=== PATIENT | female | born 1950 | race Caucasian/White ===

== ENCOUNTER → 2017-02-25 | Outpatient (CLI) | payer BC ==
[~2017-02-25] MED LIST: AMLO-110 PO; ASPI81TA28 PO; ATEN50TA8 PO; CHN/1 PO; CRS/10 PO; CRS20 PO; NAPR-1169 PO; NTRSLP4 SL; PLV75 PO; PRED1SUS3 OPR
--- NOTE | 2017-02-25 13:41 | DIAGNOSTIC IMAGING REPORT ---
TWO VIEW CHEST CLINICAL HISTORY: Tobacco use history. COPD. FINDINGS: PA and lateral chest radiographs are compared to study dated 08/14/2006. The cardiomediastinal silhouette is unremarkable. There is atherosclerotic calcification of the thoracic aorta. Chronic interstitial thickening is similar to previous. No airspace consolidation or pleural effusion is identified. There is no pneumothorax. The skeletal structures are osteopenic. Degenerative change is noted in the thoracic spine. IMPRESSION: 1. No active disease in the chest. 2. There is no concerning pulmonary lesion seen by chest x-ray. Note that chest x-ray is insensitive in screening for lung cancer, and if there is clinical concern for pulmonary neoplasm then a chest CT should be considered. Electronically signed by: Yakov Frias M.D. 02/25/2017 1:40 PM Dictated Date/Time: 02/25/2017 1:39 PM
== END | disposition home or self-care (01) ==
LOC: C.RAD 13:19
PROVIDERS: ATTEND Internal Medicine Cardiovascular Disease
DX: Z72.0 Tobacco use (principal)

== ENCOUNTER 2017-02-27 04:43 | Inpatient (IN) | payer BC ==
[2017-02-27] VITALS (14 sets, daily range): BP systolic 97–148; BP diastolic 68–86; PULSE 55–69; TEMP 36.4–36.9; O2SAT 92–99; Ht 160 cm; Wt 67.6 kg
[~2017-02-27] VITALS: Ht 160 cm; Wt 67.6 kg
[~2017-02-27 04:43] MED LIST changes: -AMLO-110 PO; -ASPI81TA28 PO; -CHN/1 PO; -CRS/10 PO; -CRS20 PO; -NTRSLP4 SL; -PLV75 PO
[2017-02-27 05:02] LABS: BASO % 0.3 %; BASO ABS # 0.02 K/uL (0-0.2); COMPLETE YES; EOS % 3.9 %; HEMATOCRIT 40.8 % (37-47); IG% 0.3 %; LYMPH % 30.5 %; LYMPH ABS # 2.19 K/uL (1.2-3.4); MEAN CELL VOLUME 91.7 fL (80-100); MEAN CORPUSCULAR HEMOGLOBIN 31.7 pg (25-34); MEAN CORPUSCULAR HGB CONC 34.6 g/dl (32-36); MEAN PLATELET VOLUME 9.5 fL (7.4-10.4); MONO % 8.6 %; NEUT % 56.4 %; PLATELET COUNT 236 K/uL (130-400); RED BLOOD COUNT 4.45 M/uL (4.2-5.4); WHITE BLOOD COUNT 7.19 K/uL (4.8-10.8)
[2017-02-27] MEDS ORDERED: AMLO-110 PO (05:09)
[2017-02-27] MEDS ORDERED: ASPI81TA28 PO (05:09)
[2017-02-27] MEDS ORDERED: CRS/10 PO (05:09)
[2017-02-27] MEDS: NITROGLYCERIN 0.4 MG SL PER TAB CHARGE SL PRN ×3 (05:10→05:20)
[2017-02-27 05:20] LABS: BUN/CREATININE RATIO 15.5 (10-20); CREATININE 0.81 mg/dl (0.60-1.20)
[2017-02-27 05:25] LABS: ISTAT CREATININE 0.6 mg/dl (0.6-1.3); ISTAT HEMOGLOBIN 13.9 g/dl (12.0-16.0); ISTAT IONIZED CALCIUM 1.17 mmol/l (1.12-1.32)
[2017-02-27] MEDS ORDERED: OPTIRAY 320 IV PRN (05:30)
[2017-02-27 05:41] LABS: CKMB/CK RATIO 1.6 (0-3.0)
[2017-02-27] MEDS ORDERED: NITROGLYCERIN OINT 2% 1GM PACKET EXT SCH (06:00)
[2017-02-27] MEDS ORDERED: NITROGLYCERIN OINT 2% 1GM PACKET ONE (06:06)
[2017-02-27 06:20] LABS: INR 0.9 (0.9-1.1); PROTHROMBIN TIME (PATIENT) 9.9 SECONDS (9.0-12.0)
[2017-02-27] MEDS ORDERED: ACETAMINOPHEN 325 MG TAB PO PRN ×2 (06:30→15:15)
[2017-02-27] MEDS ORDERED: ALUMINUM/MAGNESIUM/SIMETH (MAALOX MAX) 30 ML UDC PO PRN (06:30)
[2017-02-27] MEDS ORDERED: MoRPHine SULFATE 2 MG/ML CARP IV PRN ×2 (06:30→15:15)
[2017-02-27] MEDS ORDERED: NITROGLYCERIN 0.4 MG SL PER TAB CHARGE SL PRN (06:30)
[2017-02-27] MEDS ORDERED: ONDANSETRON INJ 2 MG/ML 2 ML VIAL IV PRN ×2 (06:30→15:15)
[2017-02-27] MEDS ORDERED: POLYETHYLENE (MIRALAX) 17 GM PACK PO PRN (06:30)
[2017-02-27] MEDS ORDERED: ZOLPIDEM TARTRATE 5 MG TAB PO PRN (06:30)
[2017-02-27] MEDS ORDERED: MAGNESIUM HYDROXIDE SUSP 30 ML UDC PO PRN (06:30)
[2017-02-27] MEDS ORDERED: HEPARIN 25000 UNIT/500 ML D5W ONE (06:33)
[2017-02-27] MEDS ORDERED: HEPARIN SOD 5000 UNIT/0.5 ML CARP ONE (06:33)
--- NOTE | 2017-02-27 06:44 | DIAGNOSTIC IMAGING REPORT ---
CT ANGIOGRAM OF THE CHEST CLINICAL HISTORY: Chest pain and elevated d-dimer COMPARISON STUDY: No previous studies for comparison. TECHNIQUE: Following the IV administration of 60 mL of Optiray-320, CT angiogram of the thorax was performed from the thoracic inlet to the lung bases utilizing the pulmonary embolus protocol. Images are reviewed in the axial, sagittal, and coronal planes. IV contrast was administered without complication. MIP imaging was performed. CT DOSE: 235.20 mGy.cm FINDINGS: No pathologically enlarged axillary mediastinal or hilar lymph nodes were visualized. There was no evidence of thoracic aortic dilatation. There were no pulmonary artery filling defects to indicate acute pulmonary embolism. No pleural effusions are visualized. There is no focal pulmonary consolidation. There are mild dependent atelectatic changes. There is a calcified granuloma within the right upper lobe. There is borderline esophageal wall thickening. There is a small hiatal hernia IMPRESSION: 1. No CT evidence of acute pulmonary embolism. 2. Small hiatal hernia. Borderline esophageal wall thickening. 3. No evidence of focal pulmonary consolidation Electronically signed by: Kameron Torres M.D. 02/27/2017 6:43 AM Dictated Date/Time: 02/27/2017 6:40 AM
--- NOTE | 2017-02-27 06:53 | History and Physical ---
History & Physical Date & Time of Service: Feb 27, 2017 at 06:37 Chief Complaint: Chest Pain Primary Care Physician: Ravin Bangura M.D. History of Present Illness Source: patient 66 y/o F Hx HTN, HPL. LBBB. Pt developed central CP with radiation to her R arm and R posterior shoulder. She describes SOB, denies N/V, diaphoresis. Initial EKG revealed lat T inversions which were not present on a previous. Initial trop was +. She obtained relief from NTG however the pain in her shoulder/upper back persisted. A CTA was obtained in the ER which was negative for dissection. Past Medical/Surgical History Medical history 1) HTN 2) HPL 3) L Nephrectomy - nonfunctioning kidney was discovered incidentally during workup for secondary HTN 4) LBBB - She had a cath 20 yrs prior due to this which was negative Surgical 1) L nephrectomy 2) Cholecystectomy 3) R wrist 4) L knee 5) Cataractcs Family History Hypertension Father due to cerebral aneurysm Mother due to gastric CA Social History Smokes 1 pack QD Does not drink Smoking Status: Current Every Day Smoker Multi-Drug Resistant Organisms History of MDRO: No Allergies Coded Allergies: No Known Allergies (Verified , 02/27/17) Home Medications Scheduled Amlodipine (Norvasc), 5 MG PO DAILY Aspirin (Aspirin Ec), 81 MG PO DAILY Atenolol (Tenormin), 50 MG PO QAM Rosuvastatin Calcium (Crestor), 10 MG PO DAILY Review of Systems Constitutional: No fever, No chills, No sweats Eyes: No worsening of vision ENT: No hearing loss, No unusual epistaxis, No nasal symptoms Respiratory: + dyspnea at rest, No cough, No sputum, No wheezing Cardiovascular: + chest pain, No orthopnea, No PND Abdomen: No pain, No nausea, No vomiting Musculoskeletal: + problem reported (Pain in post L shoulder with CP) Genitourinary - Female: No dysuria, No urinary frequency, No urinary urgency Neurologic: No memory loss Psychiatric: No depression symptoms Endocrine: No fatigue Hematologic / Lymphatic: No abnormal bleeding/bruising Integumentary: No rash Allergic / Immunologic: No environmental allergies Physical Exam Vital Signs Date Time Temp Pulse Resp B/P (MAP) Pulse Ox O2 Delivery O2 Flow Rate FiO2 02/27/17 05:41 71 18 152/80 98 Room Air 02/27/17 05:21 73 18 152/72 93 Room Air 02/27/17 05:16 67 18 145/77 94 Room Air 02/27/17 05:11 65 18 171/93 96 Room Air 02/27/17 05:03 97 Room Air 02/27/17 04:54 70 02/27/17 04:47 96 Room Air 02/27/17 04:47 37.0 73 18 179/96 96 Room Air General Appearance: WD/WN, no apparent distress Head: normocephalic Eyes: normal inspection ENT: normal ENT inspection, hearing grossly normal, TMs normal, pharynx normal Neck: supple, no JVD Respiratory/Chest: chest non-tender, lungs clear, normal breath sounds, no respiratory distress, no accessory muscle use Cardiovascular: regular rate, rhythm, no edema Abdomen/GI: normal bowel sounds, non tender, soft Back: normal inspection Extremities/Musculoskelatal: normal inspection, no calf tenderness, normal capillary refill 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, no motor/sensory deficits, alert, normal mood/affect, normal reflexes, oriented x 3 Skin: normal color, warm/dry, no rash Diagnostics Laboratory Results Results Past 24 Hours Test 02/27/17 04:53 02/27/17 05:07 02/27/17 05:10 Range/Units White Blood Count 7.19 4.8-10.8 K/uL Red Blood Count 4.45 4.2-5.4 M/uL Hemoglobin 14.1 12.0-16.0 g/dL Hematocrit 40.8 37-47 % Mean Corpuscular Volume 91.7 80-100 fL Mean Corpuscular Hemoglobin 31.7 25-34 pg Mean Corpuscular Hemoglobin Concent 34.6 32-36 g/dl Platelet Count 236 130-400 K/uL Mean Platelet Volume 9.5 7.4-10.4 fL Neutrophils (%) (Auto) 56.4 % Lymphocytes (%) (Auto) 30.5 % Monocytes (%) (Auto) 8.6 % Eosinophils (%) (Auto) 3.9 % Basophils (%) (Auto) 0.3 % Neutrophils # (Auto) 4.06 1.4-6.5 K/uL Lymphocytes # (Auto) 2.19 1.2-3.4 K/uL Monocytes # (Auto) 0.62 0.11-0.59 K/uL Eosinophils # (Auto) 0.28 0-0.5 K/uL Basophils # (Auto) 0.02 0-0.2 K/uL RDW Standard Deviation 45.0 36.4-46.3 fL RDW Coefficient of Variation 13.4 11.5-14.5 % Immature Granulocyte % (Auto) 0.3 % Immature Granulocyte # (Auto) 0.02 0.00-0.02 K/uL Prothrombin Time 9.9 9.0-12.0 SECONDS Prothromb Time International Ratio 0.9 0.9-1.1 Activated Partial Thromboplast Time 25.9 21.0-31.0 SECONDS Partial Thromboplastin Ratio 1.0 Sodium Level 142 136-145 mmol/L Potassium Level 4.0 3.5-5.1 mmol/L Chloride Level 112 98-107 mmol/L Carbon Dioxide Level 22 21-32 mmol/L Anion Gap 8.0 20.0 16-25 mmol/L Blood Urea Nitrogen 13 7-18 mg/dl Creatinine 0.81 0.60-1.20 mg/dl Est Creatinine Clear Calc Drug Dose 65.9 ml/min Estimated GFR () 89.0 Estimated GFR (Non- 76.8 BUN/Creatinine Ratio 15.5 10-20 Random Glucose 129 70-99 mg/dl Calcium Level 9.0 8.5-10.1 mg/dl Total Creatine Kinase 56 26-192 U/L Creatine Kinase MB 0.9 0.5-3.6 ng/ml Creatine Kinase MB Ratio 1.6 0-3.0 Troponin I 0.111 0-0.045 ng/ml Bedside D-Dimer > 450 0-450 ng/mlFEU Bedside Hemoglobin 13.9 12.0-16.0 g/dl Bedside Hematocrit 41 37-47 % Bedside Sodium 141 135-144 mEq/L Bedside Potassium 3.9 3.3-5.0 mEq/L Bedside Chloride 105 101-112 mEq/L Bedside Total CO2 21 24-31 mEq/l Bedside Blood Urea Nitrogen 12 7-18 mg/dl Bedside Creatinine 0.6 0.6-1.3 mg/dl Bedside Glucose (other) 130 70-99 mg/dl Bedside Ionized Calcium (Danisha) 1.17 1.12-1.32 mmol/l EKG LBBB, lat depression not present on an EKG 10/11 Impression Assessment and Plan 66 y/o F Hx HTN, HPL. LBBB. Pt developed central CP with radiation to her R arm and R posterior shoulder. She describes SOB, denies N/V, diaphoresis. Initial EKG revealed lat T inversions which were not present on a previous. Initial trop was +. She obtained relief from NTG however the pain in her shoulder/upper back persisted. A CTA was obtained in the ER which was negative for dissection. 1) NSTEMI - pt willl be evaluated by the cardiology service emergently. She has been placed on full-dose Heparin, NTG, ASA and we have doubled her Statin dose. 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 2) HTN - cont Bblocker - may want to change to Metoprolol or Coreg, Cont Norvasc , NTG 3) HPL -Crestor increased to 20mg daily 4) L nephrectomy - There is some concern with dye load as she had a CTA and will likely proceed to a cath - we will aggressively hydrate - BMP should be repeated later in day. Full Code - fulll dose Heparin Total time for this admit including review of labs, meds, EKG, records - discussion with pt and ER attending - 40 min Level of Care Telemetry Resuscitation Status FULL RESUSCITATION VTE Prophylaxis VTE Risk Assessment Done? Y/N: Yes Risk Level: Moderate Given or contraindicated: Other Anticoagulation
--- NOTE | 2017-02-27 07:04 | EMERGENCY ROOM VISIT NOTE ---
History Report prepared by [place]: John White Under the Supervision of: Dr. Richard Jean D.O. First contact with patient: 04:50 Chief Complaint: CHEST PAIN Stated Complaint: CHEST PAIN History of Present Illness The patient is a 66 year old female who presents to the Emergency Room with complaints of persistent chest pain that began at 0300 this morning, two hours prior to arrival. The patient states that she woke up form sleep this morning with a pain in her left arm and chest. She describes the pain in her chest as a "tightness" and notes that it was severe. Her pain was improved by Nitro and Aspirin that was administered via EMS prior to arrival. She does have a history of high blood pressure, but no other cardiac disease. The patient notes that she does have an arterial blockage in her left arm, and that she has had a left bundle branch block for several hear. She denies headache, change in vision, fevers, nausea, vomiting, diarrhea, pain with urination, and melena. 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 A total of 10 systems reviewed and were otherwise negative. Past Medical & Surgical Medical Problems: (1) Hypertension (2) NSTEMI (non-ST elevated myocardial infarction) Hypertension Family History Hypertension Social History Smoking Status: Current Every Day Smoker Drug Use: none Marital Status: Housing Status: lives with significant other Occupation Status: retired Current/Historical Medications Scheduled Amlodipine (Norvasc), 5 MG PO DAILY Aspirin (Aspirin Ec), 81 MG PO DAILY Atenolol (Tenormin), 50 MG PO QAM Rosuvastatin Calcium (Crestor), 10 MG PO DAILY Allergies Coded Allergies: No Known Allergies (Verified , 02/27/17) Physical Exam Vital Signs Date Time Temp Pulse Resp B/P (MAP) Pulse Ox O2 Delivery O2 Flow Rate FiO2 02/27/17 06:50 66 02/27/17 06:36 62 18 161/69 96 Room Air 02/27/17 05:41 71 18 152/80 98 Room Air 02/27/17 05:21 73 18 152/72 93 Room Air 02/27/17 05:16 67 18 145/77 94 Room Air 02/27/17 05:11 65 18 171/93 96 Room Air 02/27/17 05:03 97 Room Air 02/27/17 04:54 70 02/27/17 04:47 96 Room Air 02/27/17 04:47 37.0 73 18 179/96 96 Room Air Physical Exam GENERAL: alert, sitting up in bed, disheveled, non-toxic EYE EXAM: normal conjunctiva, PERRL and EOM's grossly intact OROPHARYNX: no exudate, no erythema, lips, buccal mucosa, and tongue normal and mucous membranes are moist NECK: supple, no nuchal rigidity, no adenopathy, non-tender LUNGS: Clear to auscultation. Normal chest wall mechanics HEART: no murmurs, S1 normal and S2 normal ABDOMEN: abdomen soft, non-tender, normo-active bowel sounds, no masses, no rebound or guarding. BACK: Back is symmetrical on inspection and there is no deformity, no midline tenderness, no CVA tenderness. SKIN: no rashes and no bruising UPPER EXTREMITIES: upper extremities are grossly normal. Left pulse diminished from the right. LOWER EXTREMITIES: No pitting edema. NEURO EXAM: Normal sensorium, cranial nerves II-XII grossly intact, normal speech, no gross weakness of arms, no gross weakness of legs. Medical Decision & Procedures ER Provider Diagnostic Interpretation: Radiology results as stated below per my review: PORTABLE UPRIGHT 1 VIEW X-RAY: No focal infiltrate, no pneumothorax. CTA CHEST: No evidence of pulmonary embolus. Calcific and noncalcific atheromatous disease of the thoracic aorta. No dissection or aneurysm. NO parenchymal abnormality still suggest inflammatory or infectious process. Calcified pulmonary nodule within the right upper lobe and right lower lobe. The heart and pericardium are unremarkable. No significant adenopathy. No pleural effusion or pneumothorax. The visualized upper abdomen demonstrates small hiatal hernia. No acute osseous abnormality. Radiologist: Richard Perry MD Laboratory Results 02/27/17 04:53 Red Blood Count 4.45, Mean Corpuscular Volume 91.7, Mean Corpuscular Hemoglobin 31.7, Mean Corpuscular Hemoglobin Concent 34.6, Mean Platelet Volume 9.5, Neutrophils (%) (Auto) 56.4, Lymphocytes (%) (Auto) 30.5, Monocytes (%) (Auto) 8.6, Eosinophils (%) (Auto) 3.9, Basophils (%) (Auto) 0.3, Neutrophils # (Auto) 4.06, Lymphocytes # (Auto) 2.19, Monocytes # (Auto) 0.62, Eosinophils # (Auto) 0.28, Basophils # (Auto) 0.02 02/27/17 04:53 Test 02/27/17 04:53 02/27/17 05:07 02/27/17 05:10 White Blood Count 7.19 K/uL (4.8-10.8) Red Blood Count 4.45 M/uL (4.2-5.4) Hemoglobin 14.1 g/dL (12.0-16.0) Hematocrit 40.8 % (37-47) Mean Corpuscular Volume 91.7 fL (80-100) Mean Corpuscular Hemoglobin 31.7 pg (25-34) Mean Corpuscular Hemoglobin Concent 34.6 g/dl (32-36) Platelet Count 236 K/uL (130-400) Mean Platelet Volume 9.5 fL (7.4-10.4) Neutrophils (%) (Auto) 56.4 % Lymphocytes (%) (Auto) 30.5 % Monocytes (%) (Auto) 8.6 % Eosinophils (%) (Auto) 3.9 % Basophils (%) (Auto) 0.3 % Neutrophils # (Auto) 4.06 K/uL (1.4-6.5) Lymphocytes # (Auto) 2.19 K/uL (1.2-3.4) Monocytes # (Auto) 0.62 K/uL (0.11-0.59) Eosinophils # (Auto) 0.28 K/uL (0-0.5) Basophils # (Auto) 0.02 K/uL (0-0.2) RDW Standard Deviation 45.0 fL (36.4-46.3) RDW Coefficient of Variation 13.4 % (11.5-14.5) Immature Granulocyte % (Auto) 0.3 % Immature Granulocyte # (Auto) 0.02 K/uL (0.00-0.02) Prothrombin Time 9.9 SECONDS (9.0-12.0) Prothromb Time International Ratio 0.9 (0.9-1.1) Activated Partial Thromboplast Time 25.9 SECONDS (21.0-31.0) Partial Thromboplastin Ratio 1.0 Est Creatinine Clear Calc Drug Dose 65.9 ml/min Estimated GFR () 89.0 Estimated GFR (Non- 76.8 BUN/Creatinine Ratio 15.5 (10-20) Calcium Level 9.0 mg/dl (8.5-10.1) Total Creatine Kinase 56 U/L (26-192) Creatine Kinase MB 0.9 ng/ml (0.5-3.6) Creatine Kinase MB Ratio 1.6 (0-3.0) Troponin I 0.111 ng/ml (0-0.045) Bedside D-Dimer > 450 ng/mlFEU (0-450) Bedside Hemoglobin 13.9 g/dl (12.0-16.0) Bedside Hematocrit 41 % (37-47) Bedside Sodium 141 mEq/L (135-144) Bedside Potassium 3.9 mEq/L (3.3-5.0) Bedside Chloride 105 mEq/L (101-112) Bedside Total CO2 21 mEq/l (24-31) Anion Gap 20.0 mmol/L (16-25) Bedside Blood Urea Nitrogen 12 mg/dl (7-18) Bedside Creatinine 0.6 mg/dl (0.6-1.3) Bedside Glucose (other) 130 mg/dl (70-99) Bedside Ionized Calcium (Danisha) 1.17 mmol/l (1.12-1.32) Laboratory results per my review. Medications Administered Medications (Trade) Dose Ordered Sig/Cami Route Start Time Stop Time Status Last Admin Dose Admin Nitroglycerin (Nitrostat Tab) 0.4 mg Q5M PRN SL 02/27/17 05:00 03/29/17 04:59 02/27/17 05:20 0.4 MG Nitroglycerin (Nitroglycerin 2% Oint) 2 inch Q6H EXT 02/27/17 06:00 03/29/17 05:59 02/27/17 06:12 2 INCH Heparin Sodium/ Dextrose 1 ea NOW STAT N/A 02/27/17 06:05 02/27/17 06:08 DC 02/27/17 06:05 1 EA Heparin Sodium/ Dextrose (Heparin 25,000 Unit/500ml D5W) 25,000 unit STK-MED ONCE .ROUTE 02/27/17 06:33 02/27/17 06:34 DC 02/27/17 06:42 25,000 UNIT Heparin Sodium (Porcine) (Heparin Sq 5000 Unit/0.5ml) 5,000 unit STK-MED ONCE .ROUTE 02/27/17 06:33 02/27/17 06:34 DC 02/27/17 06:39 5,000 UNIT ECG Indication: chest pain Rate (beats per minute): 72 Rhythm: normal sinus Findings: LBBB, ST depression (Inferior, Lateral), other (Normal intervals) Comparison ECG Date: 10/05/15 Change: no significant change Change: REPEAT ECG: Shows worsening depressions in V4 and V5. ED Course ED COURSE: Vital signs were reviewed and showed Hypertensive Vitals The patients medical record was reviewed The above diagnostic studies were performed and reviewed. ED treatments and interventions as stated above. 0452: The patient was evaluated in room A9. A complete history and physical examination was performed. 0500: Ordered Nitroglycerin 0.4 mg SL. 0600: Ordered Nitroglycerin 2 in EXT. 0606: I discussed the case with Dr. L[facility] He will evaluate the patient for further treatment. 0626: I discussed the case with Dr. Terry Kasper [facility]. He will come to evaluate the patient in the department. []: Upon reevaluation, the patient is [].I discussed my findings with the [ patient] and [] understands and agrees with the treatment plan. Based on the patients age, coexisting illnesses, exam and lab findings the decision to treat as an [inpatient][outpatient] was made. The patient remained stable while under my care. [The patient appeared well at the time of discharge.] [The patient will be evaluated for further management.] Medical Decision Blood pressure screening: Patient was found to have an elevated blood pressure and was referred to their primary doctor for recheck and further treatment. Medication Reconciliation: I attest that I have personally reviewed the patient' s current medication list. Differential diagnoses includes but is not limited to acute coronary syndrome, myocardial infarction, pericarditis, pulmonary embolus, aortic dissection, pneumonia, pneumothorax, musculoskeletal, shingles, esophageal. Patient is a 66-year-old female with a past medical history of hypertension, hyperlipidemia and a smoker that presents the ER for left arm pain and chest pain which woke her up from sleeping at 3 AM. Patient presented via ALS. Pain significant improved with nitroglycerin but not resolved. She is given additional nitroglycerin in the ER with resolution of her chest pain. She was given aspirin via EMS. She still had some mild pain in her right trapezius which she notes started with her chest pain. Repeat EKG showed worsening ST depressions in V4/V5. Patient does admit to a left bundle branch block which is known. Last cath was 20 years ago. Patient was placed on heparin drip and bolus. She had no bleeding risk factors. No blood in her stool, no blood in her urine, no recent surgeries, recent trauma, coughing up blood or previous brain bleeds. Discussed case with cardiology and they will evaluate her at bedside. Patient was admitted to internal medicine with NSTEMI. Consults Time Called: 06 Consulting Physician: Dr. Lorie GONZALEZ Hospitalist Returned Call: 06 I discussed the case with Dr. Lorie GONZALEZ Hospitalist. He will evaluate the patient for further treatment. Additional Consults: Time Called: 06 Consulted Physician: Dr. Terry GONZALEZ Hospitalist Returned Call: 06 Additional Comments: I discussed the case with Dr. Terry GONZALEZ Cardiology. He will come to evaluate the patient in the department. Impression Primary Impression: ACS (acute coronary syndrome) Additional Impressions: Elevated troponin Acute electrocardiogram changes Critical Care I have personally spent 35 minutes of critical care time in the direct management of this patient. This includes bedside care, interpretation of diagnostic studies, and testing, discussion with consultants, patient, and family members, and other required patient management activities. This 35 minutes is in excess of all separately billable procedures. Scribe Attestation The scribe's documentation has been prepared under my direction and personally reviewed by me in its entirety. I confirm that the note above accurately reflects all work, treatment, procedures, and medical decision making performed by me. Departure Information Dispostion Being Evaluated By Hospitalist Referrals Ravin Bangura M.D. (PCP) Patient Instructions My [facility] Problem Qualifiers
--- NOTE | 2017-02-27 07:08 | DIAGNOSTIC IMAGING REPORT ---
CHEST ONE VIEW PORTABLE CLINICAL HISTORY: Chest Pain pain COMPARISON STUDY: 02/25/2017 FINDINGS: The bones soft tissues and hemidiaphragms are normal. The cardiomediastinal silhouette is normal. The lungs are clear. The pulmonary vasculature is normal. IMPRESSION: Negative chest. Electronically signed by: Franco Renee M.D. 02/27/2017 7:06 AM Dictated Date/Time: 02/27/2017 7:06 AM
[2017-02-27] MEDS ORDERED: HEPARIN 25,000 UNIT/500ML D5W 500 ML IV PRN (08:45)
[2017-02-27] MEDS: AMLODIPINE BESYLATE 5 MG TAB PO SCH (09:00)
[2017-02-27] MEDS: ROSUVASTATIN CALCIUM 20 MG TAB PO SCH (09:20)
[2017-02-27] MEDS: NITROGLYCERIN OINT 2% 1GM PACKET EXT SCH ×3 (09:20→20:01)
[2017-02-27] MEDS: ASPIRIN 81 MG ECTAB PO SCH (09:20)
--- NOTE | 2017-02-27 09:21 | Cardiology Consultation ---
Cardiology Consultation Date of Consultation: Feb 27, 2017. Requesting Physician: Lorie Attending Physician: soraya Pt evaluation today including: conversation w/ patient, chart review, lab review, review of studies, conversation w/ test consultant History of Present Illness woke up with scapular discomfort and left arm heaviness with diaphoresis. Received SL NTG by EMS and in ED x3 with eventual relief. On heparin drip and NTG paste and CP free this am. No Chest pressure yesterday. Progressive SOB and THOMASON. Left calf claudication. no left radial pulse. Tearful and upset. 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 Claudication left calf Family History Hypertension Social History Smoking Status: Current Every Day Smoker History of Alcohol Use: No Review of Systems Constitutional: No see HPI, No fever, No chills, No sweats, No weight loss, No weakness, No fatigue, No problem reported Respiratory: + dyspnea on exertion Cardiac: + see HPI Abdomen: No see HPI, No pain, No nausea, No vomiting, No diarrhea, No constipation, No GI bleeding, No problem reported Neurologic: No see HPI, No memory loss, No paralysis, No weakness, No numbness/ tingling, No vertigo, No balance problems, No problem reported Endo: No see HPI, No fatigue, No excessive thirst, No excessive urination, No problem reported Skin: No see HPI, No rash, No itch, No new/changing skin lesions, No color change, No bleeding, No problem reported All Other Systems: Reviewed and Negative Allergies Coded Allergies: No Known Allergies (Verified , 02/27/17) Medications Current Inpatient Medications Medications (Trade) Dose Ordered Sig/Cami Route Start Time Stop Time Status Last Admin Dose Admin Ioversol (Optiray 320) 100 ml UD PRN IV 02/27/17 05:30 03/03/17 05:29 Amlodipine Besylate (Norvasc Tab) 5 mg DAILY PO 02/27/17 09:00 03/29/17 08:59 Aspirin (Ecotrin Tab) 81 mg DAILY PO 02/27/17 09:00 03/29/17 08:59 Atenolol (Tenormin Tab) 50 mg QAM PO 02/27/17 09:00 03/29/17 08:59 Rosuvastatin Calcium (Crestor Tab) 20 mg DAILY PO 02/27/17 09:00 03/29/17 08:59 Acetaminophen (Tylenol Tab) 650 mg Q4H PRN PO 02/27/17 06:30 03/29/17 06:29 Al Hydrox/Mg Hydrox/Simethicone (Maalox Max Susp) 15 ml Q4H PRN PO 02/27/17 06:30 03/29/17 06:29 Magnesium Hydroxide (Milk Of Magnesia Susp) 30 ml Q12H PRN PO 02/27/17 06:30 03/29/17 06:29 Zolpidem Tartrate (Ambien Tab) 5 mg HSZ PRN PO 02/27/17 06:30 03/29/17 06:29 Ondansetron HCl (Zofran Inj) 4 mg Q6H PRN IV 02/27/17 06:30 03/29/17 06:29 Nitroglycerin (Nitrostat Tab) 0.4 mg UD PRN SL 02/27/17 06:30 03/29/17 06:29 Nitroglycerin (Nitroglycerin 2% Oint) 1 inch Q6H EXT 02/27/17 10:00 03/29/17 09:59 Morphine Sulfate (MoRPHine SULFATE INJ) 2 mg Q30M PRN IV 02/27/17 06:30 03/13/17 06:29 Polyethylene (Miralax Powder Packet) 17 gm DAILY PRN PO 02/27/17 06:30 03/29/17 06:29 Heparin Sodium/ Dextrose 500 ml @ 21 mls/hr [id number] PRN IV 02/27/17 08:45 03/29/17 08:44 Physical Exam Vital Signs Past 12 Hours Date Time Temp Pulse Resp B/P (MAP) Pulse Ox O2 Delivery O2 Flow Rate FiO2 02/27/17 07:30 36.7 62 16 147/75 95 Room Air 02/27/17 06:50 66 02/27/17 06:36 62 18 161/69 96 Room Air 02/27/17 05:41 71 18 152/80 98 Room Air 02/27/17 05:21 73 18 152/72 93 Room Air 02/27/17 05:16 67 18 145/77 94 Room Air 02/27/17 05:11 65 18 171/93 96 Room Air 02/27/17 05:03 97 Room Air 02/27/17 04:54 70 02/27/17 04:47 96 Room Air 02/27/17 04:47 37.0 73 18 179/96 96 Room Air Constitutional: General Apperance: heathly-appearing Level of Distress: NAD Psychiatric: Mental Status: anxious Lungs: Respiratory effort: no dyspnea Auscultation: decreased breath sounds Cardiovascular: Heart Auscultation: RRR, no murmurs, no rubs, no gallops, II/ MARLON (early peaking) Abdomen: Bowel Sounds: normal Inspection & Palpation: soft, non-distended, no tenderness, guarding & rebound Extremities: no edema, pertinent finding (non palpable left radial pulse) Data Laboratory Results: Last 24 Hours Test 02/27/17 04:53 02/27/17 05:07 02/27/17 05:10 02/27/17 09:00 White Blood Count 7.19 K/uL Red Blood Count 4.45 M/uL Hemoglobin 14.1 g/dL Hematocrit 40.8 % Mean Corpuscular Volume 91.7 fL Mean Corpuscular Hemoglobin 31.7 pg Mean Corpuscular Hemoglobin Concent 34.6 g/dl Platelet Count 236 K/uL Mean Platelet Volume 9.5 fL Neutrophils (%) (Auto) 56.4 % Lymphocytes (%) (Auto) 30.5 % Monocytes (%) (Auto) 8.6 % Eosinophils (%) (Auto) 3.9 % Basophils (%) (Auto) 0.3 % Neutrophils # (Auto) 4.06 K/uL Lymphocytes # (Auto) 2.19 K/uL Monocytes # (Auto) 0.62 K/uL Eosinophils # (Auto) 0.28 K/uL Basophils # (Auto) 0.02 K/uL RDW Standard Deviation 45.0 fL RDW Coefficient of Variation 13.4 % Immature Granulocyte % (Auto) 0.3 % Immature Granulocyte # (Auto) 0.02 K/uL Prothrombin Time 9.9 SECONDS Prothromb Time International Ratio 0.9 Activated Partial Thromboplast Time 25.9 SECONDS Partial Thromboplastin Ratio 1.0 Sodium Level 142 mmol/L Potassium Level 4.0 mmol/L Chloride Level 112 mmol/L Carbon Dioxide Level 22 mmol/L Anion Gap 8.0 mmol/L 20.0 mmol/L Blood Urea Nitrogen 13 mg/dl Creatinine 0.81 mg/dl Est Creatinine Clear Calc Drug Dose 65.9 ml/min Estimated GFR () 89.0 Estimated GFR (Non- 76.8 BUN/Creatinine Ratio 15.5 Random Glucose 129 mg/dl Calcium Level 9.0 mg/dl Total Creatine Kinase 56 U/L Creatine Kinase MB 0.9 ng/ml Creatine Kinase MB Ratio 1.6 Troponin I 0.111 ng/ml Bedside D-Dimer > 450 ng/mlFEU Bedside Hemoglobin 13.9 g/dl Bedside Hematocrit 41 % Bedside Sodium 141 mEq/L Bedside Potassium 3.9 mEq/L Bedside Chloride 105 mEq/L Bedside Total CO2 21 mEq/l Bedside Blood Urea Nitrogen 12 mg/dl Bedside Creatinine 0.6 mg/dl Bedside Glucose (other) 130 mg/dl Bedside Ionized Calcium (Danisha) 1.17 mmol/l Imaging: CT chest reviewed EKG: NSR Borderline first degree AVB LBBB Echo from [facility] [place] normal LV function LVEF 75%, Mild LVH. Normal RV size and function , Mild , normal PA pressures Assessment & Plan (1) NSTEMI (non-ST elevated myocardial infarction) Status: Acute (2) Hypertension Status: Chronic Assessment & Plan: 1) NSTEMI 2) Chronic LBBB 3) Hx left nephrectomy secondary to STEPHANIA 4) Tob Abuse 5) LVEF 75% 6) Mild 7) No left radial pulse with left carotid bruit 8) HTN Plan cardiac cath today--risks and benefits discussed in detail IVF to hydrate after CT chest last night and single kidney with second contrast load BB, Norvasc, crestor, ASA, heparin drip, NTG paste May have LM or Triple vessel Dz needs outpt assessment of left carotid LEADS done on saturday as outpt but results not yet available Smoking cessation and may need nictone patch or Chantix d/w Hospitalists 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
[2017-02-27] MEDS ORDERED: SODIUM CHLORIDE 0.9% 1000ML 1,000 ML IV SCH (09:22)
--- NOTE | 2017-02-27 09:41 | Hospitalist Progress Note ---
Hospitalist Progress Note Date of Service Feb 27, 2017. (Christine Salas PA-C) Subjective Pt evaluation today including: conversation w/ patient, physical exam, chart review, lab review, review of studies The patient was seen and examined this morning. Pt reports doing well today, she feels much better now than earlier today. Pt reports initially her pain occured in the left arm at 2:45 AM which woke her from sleep, she woke her son up (who lives with her) and he called EMS. Pt got 2 sprays of nitroglycerin in the field, then 2 more doses one arrived in the ER and then her pain finally resolved. She denies lightheadedness or dizzinesss, chest pain or shortness of breath. Pt never had abdominal complaints or sob. Additional Comments: ROS: 6 point ROS reviewed and negative. (Christine Salas PA-C) Objective Vital Signs Date Time Temp Pulse Resp B/P (MAP) Pulse Ox O2 Delivery O2 Flow Rate FiO2 02/27/17 07:30 36.7 62 16 147/75 95 Room Air 02/27/17 06:50 66 02/27/17 06:36 62 18 161/69 96 Room Air 02/27/17 05:41 71 18 152/80 98 Room Air 02/27/17 05:21 73 18 152/72 93 Room Air 02/27/17 05:16 67 18 145/77 94 Room Air 02/27/17 05:11 65 18 171/93 96 Room Air 02/27/17 05:03 97 Room Air 02/27/17 04:54 70 02/27/17 04:47 96 Room Air 02/27/17 04:47 37.0 73 18 179/96 96 Room Air (hCristine Salas PA-C) Physical Exam General Appearance: WD/WN, no apparent distress, + pertinent finding (appears older than stated age) Eyes: PERRL, EOMI ENT: hearing grossly normal, pharynx normal Neck: supple, no JVD Respiratory/Chest: chest non-tender, no accessory muscle use, + pertinent finding (diminished breath sounds throughout, no adventitious breath sounds) Cardiovascular: regular rate, rhythm, + systolic murmur (grade II/ ), + pertinent finding (Left radial pulse is very weak, Right radial pulse 2+. Posterior tibial pulses are equal bilaterally, 1+. ) Abdomen: normal bowel sounds, non tender, soft Extremities: no pedal edema, + pertinent finding (Left calf tenderness with palpation. + slight swelling at the proximal calf muscle toward knee. No edema in ankles. ) Neurologic/Psychiatric: alert, oriented x 3 Skin: normal color, warm/dry (Christine Salas PA-C) Laboratory Results Last 24 Hours Test 02/27/17 04:53 02/27/17 05:07 02/27/17 05:10 02/27/17 09:00 White Blood Count 7.19 K/uL Red Blood Count 4.45 M/uL Hemoglobin 14.1 g/dL Hematocrit 40.8 % Mean Corpuscular Volume 91.7 fL Mean Corpuscular Hemoglobin 31.7 pg Mean Corpuscular Hemoglobin Concent 34.6 g/dl Platelet Count 236 K/uL Mean Platelet Volume 9.5 fL Neutrophils (%) (Auto) 56.4 % Lymphocytes (%) (Auto) 30.5 % Monocytes (%) (Auto) 8.6 % Eosinophils (%) (Auto) 3.9 % Basophils (%) (Auto) 0.3 % Neutrophils # (Auto) 4.06 K/uL Lymphocytes # (Auto) 2.19 K/uL Monocytes # (Auto) 0.62 K/uL Eosinophils # (Auto) 0.28 K/uL Basophils # (Auto) 0.02 K/uL RDW Standard Deviation 45.0 fL RDW Coefficient of Variation 13.4 % Immature Granulocyte % (Auto) 0.3 % Immature Granulocyte # (Auto) 0.02 K/uL Prothrombin Time 9.9 SECONDS Prothromb Time International Ratio 0.9 Activated Partial Thromboplast Time 25.9 SECONDS Partial Thromboplastin Ratio 1.0 Sodium Level 142 mmol/L Potassium Level 4.0 mmol/L Chloride Level 112 mmol/L Carbon Dioxide Level 22 mmol/L Anion Gap 8.0 mmol/L 20.0 mmol/L Blood Urea Nitrogen 13 mg/dl Creatinine 0.81 mg/dl Est Creatinine Clear Calc Drug Dose 65.9 ml/min Estimated GFR () 89.0 Estimated GFR (Non- 76.8 BUN/Creatinine Ratio 15.5 Random Glucose 129 mg/dl Calcium Level 9.0 mg/dl Total Creatine Kinase 56 U/L Creatine Kinase MB 0.9 ng/ml Creatine Kinase MB Ratio 1.6 Troponin I 0.111 ng/ml Bedside D-Dimer > 450 ng/mlFEU Bedside Hemoglobin 13.9 g/dl Bedside Hematocrit 41 % Bedside Sodium 141 mEq/L Bedside Potassium 3.9 mEq/L Bedside Chloride 105 mEq/L Bedside Total CO2 21 mEq/l Bedside Blood Urea Nitrogen 12 mg/dl Bedside Creatinine 0.6 mg/dl Bedside Glucose (other) 130 mg/dl Bedside Ionized Calcium (Danisha) 1.17 mmol/l (Christine Salas PA-C) Assessment and Plan 66 yo F with PMHx of HTN, HLD, LBBB, Left nephrectomy s/p renal artery stenosis , chronic tobacco use, celiac disease NSTEMI - Cont in Tele - Initial troponin 0.111 --> 1.080, await 1 more set - Planned cardiac cath today with possibility of needing cagb d/t probably left subclavian stenosis with worsening arm pain. Discussed with Dr. Altamirano and he reports this was not seen on CT but may be stenosed more distally. Will identify during cath. Left radial pulse is weak compared to the right radial. - CTA negative for PE - Continue on heparin gtt - very weak left radial pulse. - Pt follows with Dr. Altamirano as an outpatient, he has seen her for worsening shortness of breath and LLE claudication over the past few months. Pt with slight swelling and tenderness in the LLE compared to the right. Will check doppler to r/o dvt. - Per Dr. Altamirano hold norvasc today and give atenolol prior to cardiac cath Chronic LBBB LVEF 75% Mild - Last echo was completed as outpatient last week with Dr. Altamirano. He is ok with maintenance fluid order as above. Hx left nephrectomy secondary to renal artery stenosis in 1997 or 1999 per pt report - Cr is stable at 0.81 - Will place on NSS at 100mL/hr x 1L today as she got IV contrast with CTA. Chronic Tobacco Abuse - Pt typically smokes 1 ppd, rolls her own cigarettes - Pt denies need for nicotine patch currently, cessation encouraged at bedside Celiacs Disease - Gluten free diet once allowed, stable. DVT ppx: Teds, scds CODE STATUS: Full code Disposition: From home, lives with son, cardiac cath today. 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 Discussed with HUMBERTO Salas and agree with findings and plan as documented in the note. Any exceptions or clarifications are listed here: Pt returned from cath, had 2 CLAY placed prox LAD. Feeling much better. No CP or LUE pain. No RENE or abd pain. VSS NAD RRR no mgr CTAB no wcr Abd +BS sof NT ND Ext no edema, weak left radial pulse, right wrist with TR band in place 66 yo female with a h/o smoking, HTN, here with NSTEMI -trend troponin -checking further vascular studies for subclavian steal as per Cardiology -smoking cessation counseling given today -continue DAPT, loaded with Plavix, on Integrilin gtt now -continue high intensity statin -start SQ heparin for DVT proph after integrilin gtt completed-tomorrow AM Documented By: Deidra Granger (Deidra Granger MD)
--- NOTE | 2017-02-27 10:14 | Procedure Note ---
Pre-Mod Sedation Assessment General Date of Moderate Sedation: Feb 27, 2017. Vital Signs: Vital Signs Past 12 Hours Date Time Temp Pulse Resp B/P (MAP) Pulse Ox O2 Delivery O2 Flow Rate FiO2 02/27/17 07:30 36.7 62 16 147/75 95 Room Air 02/27/17 06:50 66 02/27/17 06:36 62 18 161/69 96 Room Air 02/27/17 05:41 71 18 152/80 98 Room Air 02/27/17 05:21 73 18 152/72 93 Room Air 02/27/17 05:16 67 18 145/77 94 Room Air 02/27/17 05:11 65 18 171/93 96 Room Air 02/27/17 05:03 97 Room Air 02/27/17 04:54 70 02/27/17 04:47 96 Room Air 02/27/17 04:47 37.0 73 18 179/96 96 Room Air Review Cardiovascular: regular rate, rhythm, no edema, + systolic murmur, + abnormal peripheral pulses Abdomen: normal bowel sounds, non tender, soft, no pulsatile mass Lungs: lungs clear Pre-Sedation Airway Assessment Oral Cavity: Dentures Able to Visualize Vocal Cords: No Short Thick Neck: No Hx of Sleep Apnea: No Smoking Status: Current Every Day Smoker ASA Classification: Class III Procedure Planning Contraindications-for Mod Sed: None Yes Notes The planned sedation has been discussed with the patient and consent obtained. I have identified the patient, determined the appropriateness of sedation and have assessed the patient immediately prior to the procedure. All medicine(s) and interventions are by my order.
[2017-02-27] MEDS ORDERED: MIDAZOLAM HCL 1 MG/ML 2ML VIAL ONE ×2 (12:43→13:45)
[2017-02-27] MEDS ORDERED: NiCARDipine HCL INJ 2.5 MG/ML 10 ML AMP ONE (12:43)
[2017-02-27] MEDS ORDERED: FENTANYL CITRATE INJ 50 MCG/1 ML 2 ML VIAL ONE ×3 (12:43→14:30)
[2017-02-27] MEDS ORDERED: HEPARIN SOD (PORCINE) 1000 UNIT/ML 10 ML VIAL ONE (12:43)
[2017-02-27] MEDS ORDERED: NITROGLYCERIN/D5W 100MCG/ML 20ML SYR ONE (12:43)
[2017-02-27] MEDS ORDERED: EPTIFIBATIDE 0.75 MG/ML 75MG VIAL IV ONE (14:15)
[2017-02-27] MEDS ORDERED: EPTIFIBATIDE 2 MG/ML 10 ML VIAL IV ONE (14:15)
[2017-02-27] MEDS ORDERED: CLOPIDOGREL BISULFATE 300 MG TAB PO ONE (14:39)
--- NOTE | 2017-02-27 15:14 | Procedure Note ---
Post-Mod Sedation Assessment General Date of Moderate Sedation Feb 27, 2017. Vital Signs: Vital Signs Past 12 Hours Date Time Temp Pulse Resp B/P (MAP) Pulse Ox O2 Delivery O2 Flow Rate FiO2 02/27/17 14:47 68 16 104/64 (77) 95 Room Air 02/27/17 14:37 65 16 142/70 (94) 95 Room Air 02/27/17 12:00 Room Air 02/27/17 11:43 36.9 69 19 148/76 (100) 97 Room Air 02/27/17 11:19 36.9 69 148/76 97 Room Air 02/27/17 07:30 36.7 62 16 147/75 95 Room Air 02/27/17 06:50 66 02/27/17 06:36 62 18 161/69 96 Room Air 02/27/17 05:41 71 18 152/80 98 Room Air 02/27/17 05:21 73 18 152/72 93 Room Air 02/27/17 05:16 67 18 145/77 94 Room Air 02/27/17 05:11 65 18 171/93 96 Room Air 02/27/17 05:03 97 Room Air 02/27/17 04:54 70 02/27/17 04:47 96 Room Air 02/27/17 04:47 37.0 73 18 179/96 96 Room Air Review - Discharge Criteria Vital Signs Stable: Yes Alert/Oriented/Conversant: Yes Returned to Baseline Mental St: Yes Nausea Absent/Minimal: Yes Pain/Discomfort/Absent/Minimal: Yes Normal/Baseline Respirations: Yes Active Bleeding?: No Pt Received D/C Instructions: N/A Prescriptions Given: None Specific Proced. D/C Criteria Distal Pulses Present (Cardiac: Yes Groin site assessed-Card Cath: N/A Voided Prior To Discharge: N/A Discharged Patients Adult Escort/Transportation: N/A
[2017-02-27] MEDS ORDERED: EPTIFIBATIDE BOLUS / DRIP IV ONE (15:15)
[2017-02-27] MEDS ORDERED: ATROPINE SULFATE 0.1 MG/ML 5ML SYR IV PRN (15:15)
[2017-02-27] MEDS: EPTIFIBATIDE INJ 75 MG PREMIXED IV SCH ×2 (15:53→21:06)
[2017-02-27 16:00] LABS: BASO % 0.1 %; BASO ABS # 0.01 K/uL (0-0.2); EOS % 3.3 %; HEMATOCRIT 40.1 % (37-47); IG% 0.3 %; LYMPH % 31.4 %; LYMPH ABS # 2.36 K/uL (1.2-3.4); MEAN CELL VOLUME 90.5 fL (80-100); MEAN CORPUSCULAR HEMOGLOBIN 31.2 pg (25-34); MEAN PLATELET VOLUME 9.6 fL (7.4-10.4); MONO % 5.3 %; NEUT % 59.6 %; PLATELET COUNT 225 K/uL (130-400); RED BLOOD COUNT 4.43 M/uL (4.2-5.4); WHITE BLOOD COUNT 7.52 K/uL (4.8-10.8)
[2017-02-27 16:13] LABS: COMPLETE YES; MEAN CORPUSCULAR HGB CONC 34.4 g/dl (32-36)
--- NOTE | 2017-02-27 21:11 | Cardiac Catheterization ---
Procedure Note Procedure Date Feb 27, 2017. Pre-Procedure Diagnosis Non STEMI, CAD AUC Score 8 Post-Procedure Diagnosis Severe CAD, Successful PCI, Elevated Intracardiac Pressures Procedure(s) Performed Coronary Angiography, Left Heart Cath, PTCA, Drug Eluting Stent, Radial Artery Angiography Set O Type Operator Dr. Ulrich Auto Appraiser(s) Larry Gupta, RTR Estimated Blood Loss 45 Medication(s) Clopidogrel (600 mg PO post PCI), Fentanyl, Heparin, Integrilin, Nicardipine ( Intra-arterial and intracoronary), Nitroglycerin (Intra-arterial and intracoronary), Versed, Lidocaine 1% Summary of Findings Clinical indications: The patient was admitted after prolonged episode of chest pain. Initial cardiac enzymes are elevated. She has a history of left bundle branch block, longstanding cigarette smoking history, hypertension, and dyslipidemia. Recent echocardiogram performed on February 25, 2017 revealed normal LV systolic function. She has peripheral vascular disease. In light of her non ST elevation myocardial infarction and significant CAD risk factors cardiac catheterization and possible coronary intervention were indicated. The procedure, risks, benefits, and alternatives of cardiac catheterization and PCI were extensively discussed with the patient. She consented to the procedure. Catheterization site: 6 [place] slender glide sheath right radial artery. Diagnostic catheters: 5 [place] brachial 3.5 diagnostic catheter. Interventional equipment: 5 [place] EBU 3.75 and AL2 guide catheters were first used in attempts at cannulating the left main coronary artery. these attempts were unsuccessful. The left main was successfully cannulated with a 5 [place] ALR 1-2 guide catheter. Intervention to the LAD was performed using a [place] J-tip guidewire, Dan Trek 2.5 x 12 millimeter balloon dilatation catheter, and Medtronic Resolute Integrity 2.5 x 18 millimeter and 2.75 x 8 millimeter drug-eluting stents. Protocol: The glide sheath was first inserted. Using a J tipped Glidewire through the brachial 3.5 catheter it was attempted to access the brachial artery. This wire would not traverse the proximal right radial artery. Angiography was performed and revealed the proximal radial artery to be 30-50 percent narrowed from either spasm and or atherosclerotic disease. The vessel was of small caliber. The Glidewire was then exchanged for a Luge coronary guidewire. This guidewire was able to traverse the proximal right radial artery and the distal brachial artery. The catheter was advanced over this wire. The wire was then exchanged for the Glidewire. The Glidewire would not traverse the right innominate artery. The Glidewire was then exchanged for the Luge wire. The Luge wire was able to access the ascending aorta. The catheter was then advanced into the ascending aorta. The guidewire was then exchanged again for the Glidewire. Coronary angiography was then performed. Left heart catheterization was performed using the diagnostic catheter. Following administration of intravenous heparin and Integrilin and documentation of a therapeutic activated clotting time PTCA was performed to the proximal LAD occlusion with the balloon dilatation catheter. Two inflations to maximum pressure of 8 atmospheres and maximum duration of 10 seconds. The 2.5 x 18 millimeter stent was then deployed in the proximal LAD at a pressure of 14 atmospheres for duration of 45 seconds. Follow-up coronary angiography was performed. This revealed a moderate very proximal LAD stenosis. There was no evidence of dissection, thrombus, perforation, or distal embolic event. The 2.75 x 8 millimeter stent was then deployed proximal to the 1st stent in an overlapping fashion. This was deployed in the very proximal LAD. It was placed over the origin of a small caliber 1st diagonal artery which arose from the very proximal LAD. Deployed at a pressure of 9 atmospheres for duration of 45 seconds. Using this 2nd stent delivery balloon the overlap site of the 2 stents was post dilated to a pressure of 9 atmospheres for duration of 15 seconds. Follow-up angiography was then performed. When the proximal LAD lesion was 1st accessed with the guidewire and the balloon dilatation catheter advanced to the site the patient developed her typical anginal symptoms. These resolved after balloon dilatation. At the completion of the procedure the patient was without any anginal complaints. She was hemodynamically stable. No arrhythmias. Hemostasis: Terumo TR band. Complications: None. Findings: Fluoroscopy revealed coronary artery calcifications. Right radial artery angiography revealed a 30-50 percent narrowing in the proximal artery. Spasm and/or atherosclerotic disease. The distal brachial artery and the proximal ulnar arteries had no obstructive disease. The coronary circulation was right dominant. The left main coronary artery was a large caliber vessel with a distal 20 percent stenosis. It gave rise to a medium caliber LAD and small caliber left circumflex. On pre PCI angiography there was an eccentric 95 percent proximal LAD stenosis. The very proximal LAD was felt to have mild- to-moderate disease. The mid LAD had a 20 percent stenosis. The distal LAD had diffuse mild 10-20 percent atherosclerotic narrowing. The very proximal LAD gave rise to a small caliber 1st diagonal artery which had a 50 percent ostial stenosis. Early mid LAD gave rise to a small caliber 2nd diagonal artery. The mid LAD gave rise to a very small caliber 3rd diagonal artery. The LAD and its branches had YEFRI 3 flow. Following deployment of the 2.5 x 18 millimeter stent there was no residual stenosis at the stent site. There was no evidence of dissection, thrombus, perforation, or distal embolic event. However, additional views of the LAD showed that the very proximal LAD had a 70 percent stenosis prior to the stent. This involved the origin of the 1st diagonal artery. There remained YEFRI 3 flow in the LAD. Following deployment of the 2.75 x 8 millimeter stent at this site the residual stenosis was 0-10 percent. There remained no evidence of dissection, thrombus, perforation, or distal embolic event. There was YEFRI 3 flow in the LAD and all of its branches. Following this 2nd stent deployment there appeared to be a slight worsening of the the ostial stenosis of the 1st LAD diagonal to approximately 70 percent. YEFRI 3 flow was present in the diagonal. The left circumflex coronary artery had 30 percent proximal and early mid stenoses. The mid circumflex gave rise to a long small to medium caliber 1st marginal artery which had 20 percent ostial and proximal stenoses. Following the 1st marginal the mid left circumflex had a focal 70 percent stenosis. The distal circumflex gave rise to a very small caliber posterolateral artery which had no obstructive disease. The right coronary was a medium caliber vessel. Had 30 percent proximal, 40 percent mid, and 30 percent distal stenoses. It gave rise to a long very small caliber acute marginal artery. Then gave rise to a very small caliber posterior descending artery and a small-caliber posterolateral artery. These vessels had no obstructive disease. Plan: The patient was transferred back to her telemetry unit room following intervention. It was planned for her to remain on intravenous Integrilin for 18 hours post PCI. She was given a loading dose of oral clopidogrel in the lab post PCI. She should remain on dual antiplatelet therapy for 1 year. She should remain on aspirin therapy indefinitely. She will remain on beta-abelino and statin therapy. DORIS inhibitor and angiotensin receptor abelino therapy contraindicated because of history of renal artery stenosis. Post PCI electrocardiograms and labs were ordered. The patient continue cardiology follow-up with her primary para machine operator Dr. Ryan Altamirano. Hemodynamics Rest Ao: 151/65/98 mm Hg Final Ao: 149/60/95 mm Hg LV: 162/19 mm Hg Recommendations Medical therapy and/or Counseling, PCI without planned CABG Specimens None Radiation Exposure (mGy) 3598 Contrast (mls) 225 ml Visipaque Fluids (cc crystalloids) 170 ml Drains none Anesthesia Intravenous Versed and fentanyl. Lidocaine 1 percent for local anesthesia. Procedural Complication(s) None Disposition PCU ACC Data Cardiac Status Clinical evaluation leading to the procedure CAD Presntation: Non STEMI Anginal Classification: CCS IV Heart Failure: No Cardiogenic Shock w/in 24Hrs: No Cardiac Arrest w/in 24Hrs: No Imaging studies past 6 months: Yes Stress studies past 6 months: No Standard Exercise Stress Test: No Stress Echocardiogram: No Stress Testing w/SPECT MPI: No Cardiac CTA: No Coronary Anatomy Dominant: Right Left Main (% Stenosis): Distal (20) LAD (% Stenosis): Proximal (70,95), Mid (20), Distal (10-20) D1 (% Stenosis): Ostial (50% pre PCI to very proximal LAD. 70% after LAD PCI.) D2 (% Stenosis): Normal D3 (% Stenosis): Normal Circumflex (% Stenosis): Proximal (30), Mid (30,70) OM1 (% Stenosis): Ostial (20), Proximal (20) L PL1 (% Stenosis): Normal RCA (% Stenosis): Proximal (30), Mid (40), Distal (30) R PDA (% Stenosis): Normal R PL1 (% Stenosis): Normal AM (% Stenosis): Normal Left Ventricular Angiography EF (%): NA Diagnostic Physician's Name: Durga Ulrich M.D. Status: Elective Closure Device Percutaneous Entry Location: Radial Closure Device: Radial Band Recommendations: Medical therapy and/or Counseling, PCI without planned CABG PCI Indication: PCI for high risk Non-STEMI Lesion Segment Name: Proximal LAD Culprit Artery: Yes Stenosis Prior to Rx (%): 70,95 Chronic Total Occlusion: No IVUS: No FFR: No Pre-Procedure YEFRI Flow: 3 Lesion Length (mm): 18 Thrombus Present: No Bifurcation Lesion: No Guidewire Across Lesion: Yes Guidewire: Stenosis Post-Procedure (%): 0-10 Post-Procedure YEFRI Flow: 3 Device(s) Deployed: Yes Type of Device(s): Medtronic Resolute Integrity 2.75 x 8 millimeter and 2.5 x 18 millimeter drug- eluting stents. Intraprocedure Events Significant Dissection: No Perforation: No
[2017-02-28 00:07] VITALS: BP 140/72; PULSE 70; TEMP 36.8; O2SAT 93
[2017-02-28 03:47] VITALS: BP 152/85; PULSE 72; TEMP 36.9; O2SAT 94
[2017-02-28] MEDS: NITROGLYCERIN OINT 2% 1GM PACKET EXT SCH (04:27)
--- NOTE | 2017-02-28 06:37 | DIAGNOSTIC IMAGING REPORT ---
Venous Doppler left leg LEFT VENOUS DOPP LOWER EXT UNILAT CLINICAL HISTORY: r/o dvt pain. Edema. TECHNIQUE: Venous Doppler COMPARISON STUDY: None FINDINGS: Normal study IMPRESSION: Normal study Electronically signed by: Franco Renee M.D. 02/28/2017 6:36 AM Dictated Date/Time: 02/28/2017 6:35 AM
[2017-02-28 07:04] LABS: BASO % 0.3 %; BASO ABS # 0.02 K/uL (0-0.2); COMPLETE YES; EOS % 2.2 %; HEMATOCRIT 37.8 % (37-47); IG% 0.3 %; LYMPH % 27.4 %; LYMPH ABS # 1.77 K/uL (1.2-3.4); MEAN CORPUSCULAR HEMOGLOBIN 30.9 pg (25-34); MEAN CORPUSCULAR HGB CONC 33.6 g/dl (32-36); MEAN PLATELET VOLUME 9.4 fL (7.4-10.4); NEUT % 60.8 %; PLATELET COUNT 219 K/uL (130-400); RED BLOOD COUNT 4.11 M/uL (4.2-5.4); WHITE BLOOD COUNT 6.47 K/uL (4.8-10.8)
[2017-02-28 07:10] VITALS: BP 147/55; PULSE 71; TEMP 36.9; O2SAT 94
[2017-02-28 07:34] LABS: BUN/CREATININE RATIO 17.7 (10-20); CALCIUM 8.8 mg/dl (8.5-10.1); CREATININE 0.74 mg/dl (0.60-1.20); POTASSIUM 3.8 mmol/L (3.5-5.1)
[2017-02-28] MEDS ORDERED: Integrelin infusion --> STOP ORDER ONE (08:00)
--- NOTE | 2017-02-28 08:13 | Hospitalist Progress Note ---
Hospitalist Progress Note Date of Service Feb 28, 2017. Objective Vital Signs Date Time Temp Pulse Resp B/P (MAP) Pulse Ox O2 Delivery O2 Flow Rate FiO2 02/28/17 07:10 36.9 71 20 147/55 (85) 94 Room Air 02/28/17 04:00 Room Air 02/28/17 03:47 36.9 72 16 152/85 (107) 94 Room Air 02/28/17 00:07 36.8 70 18 140/72 (94) 93 Room Air 02/28/17 00:01 Room Air 02/27/17 21:03 62 20 126/86 (99) 96 Room Air 02/27/17 20:03 63 20 116/68 (84) 94 Room Air 02/27/17 20:00 Room Air 02/27/17 19:03 63 20 129/78 (95) 94 Room Air 02/27/17 18:03 67 20 111/73 (86) 95 Room Air 02/27/17 17:03 67 20 112/72 (85) 92 Room Air 02/27/17 16:30 64 20 110/73 (85) 97 Nasal Cannula 2.0 02/27/17 16:00 Nasal Cannula 2.0 02/27/17 16:00 61 20 97/69 (78) 99 Nasal Cannula 2.0 02/27/17 15:45 36.4 61 20 106/76 (86) 99 Nasal Cannula 2.0 02/27/17 15:30 55 20 117/68 (84) 95 Nasal Cannula 2.0 02/27/17 15:15 59 20 107/68 (81) 92 Nasal Cannula 2.0 02/27/17 15:00 36.5 60 20 133/78 (96) 95 Nasal Cannula 2.0 02/27/17 14:47 68 16 104/64 (77) 95 Room Air 02/27/17 14:37 65 16 142/70 (94) 95 Room Air 02/27/17 12:00 Room Air 02/27/17 11:43 36.9 69 19 148/76 (100) 97 Room Air 02/27/17 11:19 36.9 69 148/76 97 Room Air Laboratory Results Last 24 Hours Test 02/27/17 09:47 02/27/17 13:32 02/27/17 13:59 02/27/17 15:44 Troponin I 1.080 ng/ml 1.150 ng/ml Kaolin Activated Coagulation Time 92 SECONDS 356 SECONDS White Blood Count 7.52 K/uL Red Blood Count 4.43 M/uL Hemoglobin 13.8 g/dL Hematocrit 40.1 % Mean Corpuscular Volume 90.5 fL Mean Corpuscular Hemoglobin 31.2 pg Mean Corpuscular Hemoglobin Concent 34.4 g/dl Platelet Count 225 K/uL Mean Platelet Volume 9.6 fL Neutrophils (%) (Auto) 59.6 % Lymphocytes (%) (Auto) 31.4 % Monocytes (%) (Auto) 5.3 % Eosinophils (%) (Auto) 3.3 % Basophils (%) (Auto) 0.1 % Neutrophils # (Auto) 4.48 K/uL Lymphocytes # (Auto) 2.36 K/uL Monocytes # (Auto) 0.40 K/uL Eosinophils # (Auto) 0.25 K/uL Basophils # (Auto) 0.01 K/uL RDW Standard Deviation 44.3 fL RDW Coefficient of Variation 13.5 % Immature Granulocyte % (Auto) 0.3 % Immature Granulocyte # (Auto) 0.02 K/uL Test 02/28/17 06:36 White Blood Count 6.47 K/uL Red Blood Count 4.11 M/uL Hemoglobin 12.7 g/dL Hematocrit 37.8 % Mean Corpuscular Volume 92.0 fL Mean Corpuscular Hemoglobin 30.9 pg Mean Corpuscular Hemoglobin Concent 33.6 g/dl Platelet Count 219 K/uL Mean Platelet Volume 9.4 fL Neutrophils (%) (Auto) 60.8 % Lymphocytes (%) (Auto) 27.4 % Monocytes (%) (Auto) 9.0 % Eosinophils (%) (Auto) 2.2 % Basophils (%) (Auto) 0.3 % Neutrophils # (Auto) 3.94 K/uL Lymphocytes # (Auto) 1.77 K/uL Monocytes # (Auto) 0.58 K/uL Eosinophils # (Auto) 0.14 K/uL Basophils # (Auto) 0.02 K/uL RDW Standard Deviation 45.6 fL RDW Coefficient of Variation 13.6 % Immature Granulocyte % (Auto) 0.3 % Immature Granulocyte # (Auto) 0.02 K/uL Sodium Level 141 mmol/L Potassium Level 3.8 mmol/L Chloride Level 111 mmol/L Carbon Dioxide Level 23 mmol/L Anion Gap 7.0 mmol/L Blood Urea Nitrogen 13 mg/dl Creatinine 0.74 mg/dl Est Creatinine Clear Calc Drug Dose 70.9 ml/min Estimated GFR () 99.2 Estimated GFR (Non- 85.6 BUN/Creatinine Ratio 17.7 Random Glucose 104 mg/dl Calcium Level 8.8 mg/dl Assessment and Plan 66 yo F with PMHx of HTN, HLD, LBBB, Left nephrectomy s/p renal artery stenosis , chronic tobacco use, celiac disease NSTEMI - Cont in Tele - Initial troponin 0.111 --> 1.080 --> 1.150 - S/p cardiac cath with 2 CLAY placed in the LAD on 02/[address] Ulrich - Left subclavian stenosis with worsening arm pain. Discussed with Dr. Altamirano and he reports this was not seen on CT but may be stenosed more distally. Await furhter imaging studies per cardiology - CTA negative for PE - Continue on inteligrin gtt - US doppler of LLE was negative for DVT. Pt has known claudication in the lower leg - Resume norvasc and atenolol and baby asa Chronic LBBB LVEF 75% Mild - Last echo was completed as outpatient last week with Dr. Altamirano. He is ok with maintenance fluid order as above. Hx left nephrectomy secondary to renal artery stenosis in 1997 or 1999 per pt report - Cr is stable at 0.81 - Will place on NSS at 100mL/hr x 1L today as she got IV contrast with CTA. Chronic Tobacco Abuse - Pt typically smokes 1 ppd, rolls her own cigarettes - Pt denies need for nicotine patch currently, cessation encouraged at bedside Celiacs Disease - Gluten free diet once allowed, stable. DVT ppx: Teds, scds CODE STATUS: Full code Disposition: From home, lives with son, cardiac cath today.
--- NOTE | 2017-02-28 08:27 | Consultant Recommendations ---
Community Engagement Coordinator Recommendations Date of Service Feb 28, 2017. Community Engagement Coordinator Recommendations ACTIVITY RECOMMENDATIONS: Excess manipulation of the wrist should be avoided for the next 24-48 hours. * No lifting over 2 pounds (approximately a 1/2 gallon of milk) with the utilized arm for 24 hours. * No strenuous activity such as bowling or tennis for 3 days. * Keep the site of the procedure covered with a bandage for 24 hours. *You may shower the day after the procedure. Do not take a tub bath or submerge the puncture site in water for the next 3 days. *Do not operate any motorized equipment for 3 days. SPECIAL CARE INSTRUCTIONS: The site may be slightly bruised and sore following your procedure. Should any of the following occur, contact the . 1. Redness/inflammation, swelling, chills, or fever, or colored drainage at procedure site within 3-7 days after your procedure. 2. Coldness, discoloration, ongoing numbness, severe pain, or swelling. Expect mild tingling of hand and tenderness at the puncture site for up to three days. If this persists beyond three days, or other symptoms develop, notify the Dr. who performed your procedure. BLEEDING: If the procedure site on your wrist begins to bleed, do not panic 1. Place 1 or 2 fingers firmly just slightly above the insertion site to stop the bleeding. You may be able to feel your pulse as you hold pressure. 2. Lift your finger after 5 minutes to see if the bleeding has stopped. 3. Once the bleeding has stopped, gently wipe the wrist area clean with a bandage. * If the bleeding from your wrist does not stop after 10 minutes, or if there is a large amount of bleeding or spurting, call 911 (do not drive yourself to the hospital). SKIN IRRITATION: * You may experience some redness and/or swelling in the area where radiation was administered. If any skin irritation occurs, please contact your family physician. FOLLOW UP VISIT: Keep any scheduled doctor appointments.
[2017-02-28] MEDS: ROSUVASTATIN CALCIUM 20 MG TAB PO SCH (08:36)
[2017-02-28] MEDS: ASPIRIN 81 MG ECTAB PO SCH (08:37)
[2017-02-28] MEDS: AMLODIPINE BESYLATE 5 MG TAB PO SCH (08:37)
--- NOTE | 2017-02-28 08:39 | Cardiology Follow-Up ---
Subjective General Date of Service: Feb 28, 2017. Pt evaluation today including: conversation w/ patient, chart review, lab review, review of studies, conversation w/ solar energy consultant and designer History of Present Illness The patient is a 66 year old female Allergies Coded Allergies: No Known Allergies (Verified , 02/27/17) Social History Smoking Status: Current Every Day Smoker Hx Tobacco Use In Past Year?: Yes Hx Alcohol Use - Type And Amou: No Hx Substance Use - Type And Am: No Problem List Medical Problems: (1) ACS (acute coronary syndrome) Status: Acute (2) Acute electrocardiogram changes Status: Acute (3) Elevated troponin Status: Acute (4) Hypertension Status: Chronic Review of Systems Respiratory: No shortness of breath, No dyspnea on exertion Cardiac: No chest pain, No edema, No palpitations Additional ROS Details: Feels better and slight chest heaviness resolved. Can take a bigger breath. NO anginal sx's, Right hand warm and no discomfort. Physical Exam Vital Signs Last Vital Signs Documentation Date Time Temp Pulse Resp B/P (MAP) Pulse Ox O2 Delivery O2 Flow Rate FiO2 02/28/17 07:10 36.9 71 20 147/55 (85) 94 Room Air 02/27/17 16:30 2.0 Physical Exam Constitutional: General Apperance: heathly-appearing Level of Distress: NAD Psychiatric: Mental Status: anxious Lungs: Respiratory effort: no dyspnea Auscultation: no wheezing, no rales/crackles, no rhonchi, decreased breath sounds Cardiovascular: Heart Auscultation: RRR, no murmurs, no rubs, no gallops, II/ MARLON (early peaking) Abdomen: Bowel Sounds: normal Inspection & Palpation: soft, non-distended, no tenderness, guarding & rebound Extremities: no edema, pertinent finding (normal right radial pulse post cath, right hand warm to touch) Assessment and Plan Assessment and Plan (1) NSTEMI (non-ST elevated myocardial infarction) Status: Acute (2) Hypertension Status: Chronic 1) NSTEMI (non-ST elevated myocardial infarction) Status: Acute (2) Hypertension Status: Chronic Assessment & Plan: 1) NSTEMI 2) Chronic LBBB 3) 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 Patient is feeling well this morning. She should be discharged on aspirin 81 mg, Plavix 75 mg daily, atenolol 50 mg daily, Norvasc 5 mg daily, and Crestor 20 mg daily. Post cath instructions were placed in [facility] with regards to taking care of her right radial access site upon d/c. I did discuss with her smoking cessation today in detail. She is interested in Chantix and understands there is a slight risk of suicide with the drug. I discussed that it is important to notify her friends and family that she is starting the medication and if they notice a change in her personality the medication should be stopped. We also discussed that it's not unusual in the first 10 days to have some nausea associated with the drug and that usually resolves. We also discussed the need to stop smoking after 10 days. We also discussed that she'll need to determine how to avoid smoking during stressful situations or with her morning cup of coffee. She is scheduled as outpatient to assess her carotids and her left subclavian given the fact she does not have a left radial pulse. She needs a BMP within a week. If her Creatinine is stable at that point I would stop her amlodipine and switch her over to an DORIS inhibitor. I also discussed with her that she'll remain on aspirin for life and Plavix for a year. If she needs to stop her Plavix for any reason in the next year she is to contact us first unless it's an emergency. From my standpoint she can be discharged home. She already has follow-up scheduled next week. Laboratory Results Last 24 Hours Test 02/27/17 09:47 02/27/17 13:32 02/27/17 13:59 02/27/17 15:44 Troponin I 1.080 ng/ml 1.150 ng/ml Kaolin Activated Coagulation Time 92 SECONDS 356 SECONDS White Blood Count 7.52 K/uL Red Blood Count 4.43 M/uL Hemoglobin 13.8 g/dL Hematocrit 40.1 % Mean Corpuscular Volume 90.5 fL Mean Corpuscular Hemoglobin 31.2 pg Mean Corpuscular Hemoglobin Concent 34.4 g/dl Platelet Count 225 K/uL Mean Platelet Volume 9.6 fL Neutrophils (%) (Auto) 59.6 % Lymphocytes (%) (Auto) 31.4 % Monocytes (%) (Auto) 5.3 % Eosinophils (%) (Auto) 3.3 % Basophils (%) (Auto) 0.1 % Neutrophils # (Auto) 4.48 K/uL Lymphocytes # (Auto) 2.36 K/uL Monocytes # (Auto) 0.40 K/uL Eosinophils # (Auto) 0.25 K/uL Basophils # (Auto) 0.01 K/uL RDW Standard Deviation 44.3 fL RDW Coefficient of Variation 13.5 % Immature Granulocyte % (Auto) 0.3 % Immature Granulocyte # (Auto) 0.02 K/uL Test 02/28/17 06:36 White Blood Count 6.47 K/uL Red Blood Count 4.11 M/uL Hemoglobin 12.7 g/dL Hematocrit 37.8 % Mean Corpuscular Volume 92.0 fL Mean Corpuscular Hemoglobin 30.9 pg Mean Corpuscular Hemoglobin Concent 33.6 g/dl Platelet Count 219 K/uL Mean Platelet Volume 9.4 fL Neutrophils (%) (Auto) 60.8 % Lymphocytes (%) (Auto) 27.4 % Monocytes (%) (Auto) 9.0 % Eosinophils (%) (Auto) 2.2 % Basophils (%) (Auto) 0.3 % Neutrophils # (Auto) 3.94 K/uL Lymphocytes # (Auto) 1.77 K/uL Monocytes # (Auto) 0.58 K/uL Eosinophils # (Auto) 0.14 K/uL Basophils # (Auto) 0.02 K/uL RDW Standard Deviation 45.6 fL RDW Coefficient of Variation 13.6 % Immature Granulocyte % (Auto) 0.3 % Immature Granulocyte # (Auto) 0.02 K/uL Sodium Level 141 mmol/L Potassium Level 3.8 mmol/L Chloride Level 111 mmol/L Carbon Dioxide Level 23 mmol/L Anion Gap 7.0 mmol/L Blood Urea Nitrogen 13 mg/dl Creatinine 0.74 mg/dl Est Creatinine Clear Calc Drug Dose 70.9 ml/min Estimated GFR () 99.2 Estimated GFR (Non- 85.6 BUN/Creatinine Ratio 17.7 Random Glucose 104 mg/dl Calcium Level 8.8 mg/dl
[2017-02-28] MEDS ORDERED: CLOPIDOGREL BISULFATE 75 MG TAB PO SCH (09:00)
--- NOTE | 2017-02-28 09:12 | Discharge Instructions ---
Discharge Instructions Date of Service Feb 28, 2017. Admission Reason for Admission: Nstemi Discharge Discharge Diagnosis / Problem: NSTEMI Discharge Goals Goal(s): Decrease discomfort, Improve function, Increase independence, Improve disease control Activity Recommendations Activity Limitations: resume your previous activity Lifting Limitations: no more than 25 pounds, gradually increase as tolerated Exercise/Sports Limitations: rest today, gradually increase as tolerated May Resume Sexual Activity: when tolerated Shower/Bathe: no limitations Driving or Machine Use: no limitations . Instructions / Follow-Up Instructions / Follow-Up You were admitted to [facility] with NSTEMI (heart attack) and diagnosed with the same. - During your stay here you underwent cardiac cath on 02/27/[address] Ulrich and 2 stent were placed. - Please refer to cardiology discharge instructions for further details. Medications: You were started on medications: Plavix 75 mg daily You have also been given a prescription for Chantix to help stop smoking. Risks , adverse effects and other possible side effects have been discussed with you. Please tell your family you have started this medication, and note that one major side effect is suicidal ideation. If you experience any feeling like this , stop the medication and call your PCP immediately or go directly to the ER. Continue taking Chantix as follows: Start with 0.5 mg (half tablet) orally once daily for days 1 through 3, then 0.5 mg (half tablet) twice daily for days 4 through 7, then 1 mg twice daily; duration of treatment is 12 weeks Follow up: Follow up with your Primary Care Provider within 1 week. Follow up with Cardiology with Dr. Altamirano on 03/07/17 as already scheduled. Current Hospital Diet Patient's current hospital diet: AHA Diet (Heart Healthy), Low Sodium Diet (2gm Na) Discharge Diet Recommended Diet: AHA Diet (Heart Healthy), Low Sodium Diet (2gm Na) Procedures Procedures Performed: Cardiac catheterization 02/27 Pending Studies Studies pending at discharge: no Medical Emergencies . Who to Call and When: Medical Emergencies: If at any time you feel your situation is an emergency, please call 911 immediately. . Non-Emergent Contact Non-Emergency issues call your: Primary Care Provider, Infant Babysitter Call Non-Emergent contact if: you have a fever, your pain is not controlled, your pain is worsening, your pain is unusual for you, your pain is concerning you, you have any medication questions chest pain, shortness of breath, abdominal pain, lightheadedness, dizziness, or have recurrent pain, or if you have other concerns regarding your health. . Past History Medical & Surgical History: (1) NSTEMI (non-ST elevated myocardial infarction) . "Provider Documentation" section prepared by Mallory Salas. . Salesperson Flying Squad Recommendations Salesperson Flying Squad Recommendations: ACTIVITY RECOMMENDATIONS: Excess manipulation of the wrist should be avoided for the next 24-48 hours. * No lifting over 2 pounds (approximately a 1/2 gallon of milk) with the utilized arm for 24 hours. * No strenuous activity such as bowling or tennis for 3 days. * Keep the site of the procedure covered with a bandage for 24 hours. *You may shower the day after the procedure. Do not take a tub bath or submerge the puncture site in water for the next 3 days. *Do not operate any motorized equipment for 3 days. SPECIAL CARE INSTRUCTIONS: The site may be slightly bruised and sore following your procedure. Should any of the following occur, contact the . 1. Redness/inflammation, swelling, chills, or fever, or colored drainage at procedure site within 3-7 days after your procedure. 2. Coldness, discoloration, ongoing numbness, severe pain, or swelling. Expect mild tingling of hand and tenderness at the puncture site for up to three days. If this persists beyond three days, or other symptoms develop, notify the Dr. who performed your procedure. BLEEDING: If the procedure site on your wrist begins to bleed, do not panic 1. Place 1 or 2 fingers firmly just slightly above the insertion site to stop the bleeding. You may be able to feel your pulse as you hold pressure. 2. Lift your finger after 5 minutes to see if the bleeding has stopped. 3. Once the bleeding has stopped, gently wipe the wrist area clean with a bandage. * If the bleeding from your wrist does not stop after 10 minutes, or if there is a large amount of bleeding or spurting, call 911 (do not drive yourself to the hospital). SKIN IRRITATION: * You may experience some redness and/or swelling in the area where radiation was administered. If any skin irritation occurs, please contact your family physician. FOLLOW UP VISIT: Keep any scheduled doctor appointments. VTE Core Measure Inpt VTE Proph given/why not?: Other Anticoagulation, T.E.D. Stockings, SCD's
[2017-02-28] MEDS ORDERED: CHN/1 PO (09:14)
[2017-02-28] MEDS ORDERED: NTRSLP4 SL (09:14)
[2017-02-28] MEDS ORDERED: PLV75 PO (09:14)
[2017-02-28] MEDS ORDERED: CRS20 PO (10:32)
[2017-02-28 10:35] VITALS: BP 147/55; PULSE 71; TEMP 36.9; O2SAT 94
--- NOTE | 2017-02-28 11:28 | Discharge Instructions ---
Discharge Instructions Date of Service Feb 28, 2017. Admission Reason for Admission: Nstemi Discharge Discharge Diagnosis / Problem: NSTEMI Discharge Goals Goal(s): Improve disease control, Diagnostic testing, Therapeutic intervention Activity Recommendations Activity Limitations: as noted below . Instructions / Follow-Up Instructions / Follow-Up Home Care: * Take your medications exactly as directed. Don't skip doses. * Remember that recovery after a heart attack takes time. Plan to rest for at lease 4-8 weeks while you recover. Then return to normal activity when your doctor says it's okay. * Ask your doctor about joining a heart rehabilitation program. * Tell your doctor if you are feeling depressed. Feelings of sadness are common after a heart attack, but it is important that you speak to someone if you are feeling overwhelmed by these feelings. * If you are having chest pain, call 911 for an ambulance. Do NOT drive yourself to the hospital. * Ask your family members to learn CPR. * Learn to take your own blood pressure and pulse. Keep a record of your results. Ask your doctor when you should seek emergency medical attention. He or she will tell you which blood pressure reading is dangerous. Lifestyle Changes: * Maintain a healthy weight. Get help to lose any extra pounds. * Cut back on salt. * Limit canned, dried, packaged, and fast foods. * Don't add salt to your food. * Season foods with herbs instead of salt when you cook. * Break the smoking habit. Enroll in a stop-smoking program to improve your chances of success. * Limit fatty foods. * Check your lipid levels regularly. (Your doctor can show you how to do this.) * Build up your activity according to your doctor's recommendation. * Ask your doctor when it's okay to resume sexual activity. * Tell your doctor about any erectile dysfunction (ED) medication you are taking. Some ED medications are not safe if you take certain heart medications. * Try to manage stress. Follow Up: It is important for you to keep your follow up appointments with your medical provider. Current Hospital Diet Patient's current hospital diet: AHA Diet (Heart Healthy), Low Sodium Diet (2gm Na) Discharge Diet Recommended Diet: AHA Diet (Heart Healthy), Low Sodium Diet (2gm Na) Procedures Procedures Performed: Cardiac catheterization 02/27 Pending Studies Studies pending at discharge: no Medical Emergencies . Who to Call and When: Medical Emergencies: If at any time you feel your situation is an emergency, please call 911 immediately. Call 911 immediately or go to your nearest Emergency Room if you experience any of the following: Warning Signs and Symptoms of a Heart Attack * Chest pain that is not relieved by medication * Shortness of breath . Non-Emergent Contact Non-Emergency issues call your: Primary Care Provider, Transfer Controller . . "Provider Documentation" section prepared by Deidra Granger. . Docketing Specialist Recommendations Docketing Specialist Recommendations: ACTIVITY RECOMMENDATIONS: Excess manipulation of the wrist should be avoided for the next 24-48 hours. * No lifting over 2 pounds (approximately a 1/2 gallon of milk) with the utilized arm for 24 hours. * No strenuous activity such as bowling or tennis for 3 days. * Keep the site of the procedure covered with a bandage for 24 hours. *You may shower the day after the procedure. Do not take a tub bath or submerge the puncture site in water for the next 3 days. *Do not operate any motorized equipment for 3 days. SPECIAL CARE INSTRUCTIONS: The site may be slightly bruised and sore following your procedure. Should any of the following occur, contact the . 1. Redness/inflammation, swelling, chills, or fever, or colored drainage at procedure site within 3-7 days after your procedure. 2. Coldness, discoloration, ongoing numbness, severe pain, or swelling. Expect mild tingling of hand and tenderness at the puncture site for up to three days. If this persists beyond three days, or other symptoms develop, notify the Dr. who performed your procedure. BLEEDING: If the procedure site on your wrist begins to bleed, do not panic 1. Place 1 or 2 fingers firmly just slightly above the insertion site to stop the bleeding. You may be able to feel your pulse as you hold pressure. 2. Lift your finger after 5 minutes to see if the bleeding has stopped. 3. Once the bleeding has stopped, gently wipe the wrist area clean with a bandage. * If the bleeding from your wrist does not stop after 10 minutes, or if there is a large amount of bleeding or spurting, call 911 (do not drive yourself to the hospital). SKIN IRRITATION: * You may experience some redness and/or swelling in the area where radiation was administered. If any skin irritation occurs, please contact your family physician. FOLLOW UP VISIT: Keep any scheduled doctor appointments. AMI Core Measures Reason no ASA as I/P: Treatment provided - N/A Reason no ASA at D/C: Treatment provided - N/A Reason no statin as I/P: Treatment provided - N/A Reason no statin at D/C: Treatment provided - N/A VTE Core Measure Inpt VTE Proph given/why not?: Unfractionated heparin SQ, T.E.D. Stockings, SCD 's
--- NOTE | 2017-02-28 14:16 | Discharge Summary ---
Discharge Summary Date of Service Feb 28, 2017. (Christine Salas PA-C) Discharge Summary Admission Date: Feb 27, 2017 at 06:24 Discharge Date: Feb 28, 2017 Principal Diagnosis: NSTEMI Problems/Secondary Diagnoses: (1) Hypertension Status: Chronic Procedures: Cardiac Cath on 02/27/17 with 2 CLAY to the LAD CHEST ONE VIEW PORTABLE CLINICAL HISTORY: Chest Pain pain COMPARISON STUDY: 02/25/2017 FINDINGS: The bones soft tissues and hemidiaphragms are normal. The cardiomediastinal silhouette is normal. The lungs are clear. The pulmonary vasculature is normal. IMPRESSION: Negative chest. Electronically signed by: Franco Renee M.D. 02/27/2017 7:06 AM Dictated Date/Time: 02/27/2017 7:06 AM The status of this report is Signed. CT ANGIOGRAM OF THE CHEST CLINICAL HISTORY: Chest pain and elevated d-dimer COMPARISON STUDY: No previous studies for comparison. TECHNIQUE: Following the IV administration of 60 mL of Optiray-320, CT angiogram of the thorax was performed from the thoracic inlet to the lung bases utilizing the pulmonary embolus protocol. Images are reviewed in the axial, sagittal, and coronal planes. IV contrast was administered without complication. MIP imaging was performed. CT DOSE: 235.20 mGy.cm FINDINGS: No pathologically enlarged axillary mediastinal or hilar lymph nodes were visualized. There was no evidence of thoracic aortic dilatation. There were no pulmonary artery filling defects to indicate acute pulmonary embolism. No pleural effusions are visualized. There is no focal pulmonary consolidation. There are mild dependent atelectatic changes. There is a calcified granuloma within the right upper lobe. There is borderline esophageal wall thickening. There is a small hiatal hernia IMPRESSION: 1. No CT evidence of acute pulmonary embolism. 2. Small hiatal hernia. Borderline esophageal wall thickening. 3. No evidence of focal pulmonary consolidation Electronically signed by: Kameron Torres M.D. 02/27/2017 6:43 AM Dictated Date/Time: 02/27/2017 6:40 AM The status of this report is Signed. Venous Doppler left leg LEFT VENOUS DOPP LOWER EXT UNILAT CLINICAL HISTORY: r/o dvt pain. Edema. TECHNIQUE: Venous Doppler COMPARISON STUDY: None FINDINGS: Normal study IMPRESSION: Normal study Electronically signed by: Franco Renee M.D. 02/28/2017 6:36 AM Dictated Date/Time: 02/28/2017 6:35 AM The status of this report is Signed. Consultations: Cardiology (Christine Salas PA-C) Problems/Secondary Diagnoses: HTN HL Chronic LBBB Left nephrectomy secondary to renal artery stenosis Chronic tobacco use Celiac disease NSTEMI Suspected left subclavian stenosis/steal syndrome Weak left radial pulse Mild . Hx left nephrectomy secondary to renal artery stenosis in 1997 or 1999 per pt report Celiac Disease (Deidra Granger MD) Medication Reconciliation New Medications: Varenicline (Chantix) 1 Mg Tab 0.5 TAB PO UD for 30 Days, #60 TAB 1 Refill Take 0.5 mg once daily for days 1 through 3, then 0.5 mg twice daily for days 4 through 7, then 1 mg twice daily x 12 weeks Clopidogrel Bisulfate (Clopidogrel) 75 Mg Tab 75 MG PO QAM for 30 Days, #30 TAB Nitroglycerin (Nitrostat) 0.4 Mg/1 Tab Subl 0.4 MG SL UD PRN for Chest Pain for 30 Days, #60 TAB Take 1 tablet every 5 min, up to 3x in a row for chest pain. If not resolved call 911 or go to the ER. Rosuvastatin Calcium (Crestor) 20 Mg Tab 20 MG PO DAILY for 30 Days, #30 TAB Continued Medications: Amlodipine (Norvasc) 5 Mg Tab 5 MG PO DAILY, TAB Aspirin (Aspirin Ec) 81 Mg Tab 81 MG PO DAILY Atenolol (Tenormin) 50 Mg Tab 50 MG PO QAM, TAB Discontinued Medications: Rosuvastatin Calcium (Crestor) 10 Mg Tab 10 MG PO DAILY, TAB Discharge Exam The patient was seen and examined this morning. Patient reports feeling well. She has already been seen by this morning and is anticipating going home later today. She denies any chest pain or shortness of breath, she has been up and walking from bed to bathroom without any complaints. ROS: Constitutional: No fever, chills, sweats, fatigue or weakness Eyes: No diplopia, no changes in vision ENT: No sore throat, tinnitus, or trouble swallowing Respiratory: No shortness of breath, No dyspnea at rest or on exertion, no cough or sputum Cardiovascular: No chest pain, palpitations, or flutter Abdomen: No pain, No constipation, No diarrhea, No nausea, No vomiting Musculoskeletal: No calf pain, No joint pain, No swelling Genitourinary : No dysuria or urinary frequency, No hematuria Neurologic: No numbness/tingling, no difficulty with ambulation, no sensory or motor deficits Psychiatric: No depression or anxiety symptoms Endocrine: No fatigue, No weight changes Integumentary: No itch, No rash PE: General: awake, alert, no apparent distress, appears older than stated age. Head: Normocephalic, atraumatic ENT: PERRL, EOMI, no pharyngeal exudate, mucous membranes moist Chest: Clear to auscultation, on room air, no adventitious breath sounds Cardiac: + systolic murmur (grade II/ ), + pertinent finding (Left radial pulse is very weak, Right radial pulse 2+. Posterior tibial pulses are equal bilaterally, 1+. ) Abdominal: NABS x 4 quadrants, soft, nontender to palpation, no rebound, guarding or tenderness Extremities: Normal inspection, no peripheral edema or erythema, calfs nontender to palpation Psych: Normal mood and affect Neuro: AAO x 3, strength intact bilaterally and related 5/5, no motor deficits, speech is clear, no peripheral sensory deficits (Christine Salas, EMMA) Hospital Course History of Present Illness Source: patient 66 y/o F Hx HTN, HPL. LBBB. Pt developed central CP with radiation to her R arm and R posterior shoulder. She describes SOB, denies N/V, diaphoresis. Initial EKG revealed lat T inversions which were not present on a previous. Initial trop was +. She obtained relief from NTG however the pain in her shoulder/upper back persisted. A CTA was obtained in the ER which was negative for dissection. Physical Exam Vital Signs Date Time Temp Pulse Resp B/P (MAP) Pulse Ox O2 Delivery O2 Flow Rate FiO2 02/27/17 05:41 71 18 152/80 98 Room Air 02/27/17 05:21 73 18 152/72 93 Room Air 02/27/17 05:16 67 18 145/77 94 Room Air 02/27/17 05:11 65 18 171/93 96 Room Air 02/27/17 05:03 97 Room Air 02/27/17 04:54 70 02/27/17 04:47 96 Room Air 02/27/17 04:47 37.0 73 18 179/96 96 Room Air General Appearance: WD/WN, no apparent distress Head: normocephalic Eyes: normal inspection ENT: normal ENT inspection, hearing grossly normal, TMs normal, pharynx normal Neck: supple, no JVD Respiratory/Chest: chest non-tender, lungs clear, normal breath sounds, no respiratory distress, no accessory muscle use Cardiovascular: regular rate, rhythm, no edema Abdomen/GI: normal bowel sounds, non tender, soft Back: normal inspection Extremities/Musculoskelatal: normal inspection, no calf tenderness, normal capillary refill Neurologic/Psych: appointment scheduler II-XII nml as tested, no motor/sensory deficits, alert, normal mood/affect, normal reflexes, oriented x 3 Skin: normal color, warm/dry, no rash Hospital course: 66 yo F with PMHx of HTN, HLD, LBBB, Left nephrectomy s/p renal artery stenosis , chronic tobacco use, celiac disease, patient underwent a cardiac cath on by Dr. Ulrich where 2 CLAY were placed in the LAD. Dr. Altamirano has follow-up appointment scheduled already on 03/07/17 to have outpatient carotid Dopplers completed. NSTEMI - Initial troponin 0.111 --> 1.080 --> 1.150 - S/p cardiac cath with 2 CLAY placed in the LAD on 02/[address] Ulrich - Left subclavian stenosis with worsening arm pain. Discussed with Dr. Altamirano and he reports this was not seen on CT but may be stenosed more distally. Await furhter imaging studies per cardiology - CTA negative for PE - Pt was on inteligrin gtt after cardiac cath and discontinued prior to discharge. - US doppler of LLE was negative for DVT. Pt has known claudication in the lower leg - Resume norvasc and atenolol and baby asa, statin therapy. Chronic LBBB LVEF 75% Mild - Last echo was completed as outpatient last week with Dr. Altamirano. He is ok with maintenance fluid order as above. Hx left nephrectomy secondary to renal artery stenosis in 1997 or 1999 per pt report - Cr is stable at 0.81 - Will place on NSS at 100mL/hr x 1L today as she got IV contrast with CTA. Chronic Tobacco Abuse - Pt typically smokes 1 ppd, rolls her own cigarettes - Pt denies need for nicotine patch currently, cessation encouraged at bedside - Patient was provided with prescription for Chantix upon discharge. She was made aware of possible side effects/adverse effects specifically suicidal ideation possibility, she has been asked to tell her family she starting this medication and watch out for any signs or symptoms of suicidality. Patient was warned that if she does experience any of these adverse effects to immediately call her PCP or return to the ER. Celiacs Disease - Gluten free diet DVT ppx: Teds, scds CODE STATUS: Full code Disposition: From home, discharged to home today. Total Time Spent: Greater than 30 minutes This includes examination of the patient, discharge planning, medication reconciliation, and communication with other providers. (Christine Salas, EMMA) Discharge Instructions Please refer to the electronic Patient Visit Report (Discharge Instructions) for additional information. (Christine Salas PA-C) Follow-Up Follow-up with Dr. Altamirano as already scheduled in one week, 03/07/17 Follow up with your Primary Care Provider within 1 week. (Christine Salas PA-C) Additional Copies To Ravin Bangura M.D. Reviewed: Pt Seen/Exam by Me (Deidra Granger MD) History Physician Medical Affairs Manager Supervision Note: I interviewed and examined the patient. Discussed with HUMBERTO Salas and agree with findings and plan as documented in the note. Any exceptions or clarifications are listed here: Pt had 2 CLAY placed prox LAD yesterday. Feeling much better. No CP or LUE pain. No RENE or abd pain. Ready for discharge and is motivated to quit smoking VSS NAD RRR no mgr CTAB no wcr Abd +BS sof NT ND Ext no edema, weak left radial pulse, right wrist with dressing in place c/d/i 66 yo female with a h/o smoking, HTN, here with NSTEMI now s/p CLAY x 2 in prox LAD -checking further vascular studies for subclavian steal as per Cardiology as outpatient -smoking cessation counseling given today -continue DAPT, loaded with Plavix, will give ASA/Plavix -continue high intensity statin (Deidra Granger MD)
== END 2017-02-28 11:50 | disposition home or self-care (01) | DRG 247 ==
LOC: EDBD 04:43 → C.EDA 04:45 → C.2T 06:24 → ENRESERV 06:55
PROVIDERS: ADMIT Internal Medicine; ATTEND Internal Medicine
PROC: 4A023N7 Measurement of Cardiac Sampling and Pressure, Left Heart, Percutaneous Approach (ICD-10-PCS; principal; 2017-02-27 12:32)
PROC: 027034Z Dilation of Coronary Artery, One Artery with Drug-eluting Intraluminal Device, Percutaneous Approach (ICD-10-PCS; principal; 2017-02-27 12:32)
PROC: 3E033PZ Introduction of Platelet Inhibitor into Peripheral Vein, Percutaneous Approach (ICD-10-PCS; principal; 2017-02-27 12:32)
PROC: B2111ZZ Fluoroscopy of Multiple Coronary Arteries using Low Osmolar Contrast (ICD-10-PCS; principal; 2017-02-27 12:32)
DX: I21.4 Non-ST elevation (NSTEMI) myocardial infarction (principal); I10 Essential (primary) hypertension; F17.210 Nicotine dependence, cigarettes, uncomplicated; E78.5 Hyperlipidemia, unspecified; I25.10 Atherosclerotic heart disease of native coronary artery without angina pectoris; Z90.5 Acquired absence of kidney

== ENCOUNTER 2024-07-02 18:36 | Inpatient (IN) ==
[2024-07-02] MEDS: SODIUM CHLORIDE 0.9% 1,000 ML IV ONE (19:23)
--- NOTE | 2024-07-02 19:27 | Emergency Department Note ---
Impression & Plan Nausea & vomiting, Diarrhea, Generalized weakness, Fever, Pneumonia, Sepsis ED Provider Note ED Provider Note NAME: DOUG ANTOINE AGE:73 SEX: Female : 1950 ARRIVES VIA: Private vehicle INFORMANT: Patient ED PROVIDER(s): Cheyenne Bear DO CHIEF COMPLAINT: Weakness, dizziness, vomiting and diarrhea HPI: This is a 73-year-old female who presents emergency department with family bedside due to concern for several days of weakness, dizziness, vomiting and diarrhea, abdominal pain, and fevers. Patient states she first began feeling ill on Saturday with increased fatigue and decreased appetite. This then evolved into a cough followed by nausea and vomiting and diarrhea. She denies any hematemesis or hematochezia. She states she did have intermittent fevers over the last several days the highest of which was 103 F. No known close sick contacts, no recent change in medication, no recent travel. Family states she has been increasingly weak and dizzy particular with position change. Family concern for dehydration. Patient also has a solitary kidney. Patient was able to take her medications today including her blood pressure medication. PAST MEDICAL HISTORY:See Below PAST SURGICAL HISTORY:See Below FAMILY HISTORY:See Below SOCIAL HISTORY:See Below HOME MEDICATIONS:See Below ALLERGIES:See Below VITALS:See Below PHYSICAL EXAMINATION: GENERAL: alert, well appearing, well nourished, no distress, non-toxic EYE EXAM: normal conjunctiva, PERRL and EOM's grossly intact OROPHARYNX: no exudate, no erythema, lips, buccal mucosa, and tongue normal and mucous membranes are dry NECK: supple, no nuchal rigidity, no adenopathy, non-tender LUNGS: Clear to auscultation. Normal chest wall mechanics, no w/r/r HEART: no murmurs, S1 normal and S2 normal ABDOMEN: abdomen soft, left mid and left upper quadrant abdominal pain with palpation, normo-active bowel sounds, no masses, no rebound or guarding. Dull to percussion. SKIN: no rashes, petechiae, orbruising UPPER EXTREMITIES: upper extremities are grossly normal. FROM, nml pulses b/l. LOWER EXTREMITIES: No pitting edema. FROM, nml pulses b/l. NEURO EXAM: Normal sensorium, cranial nerves II-XII grossly intact, normal speech, no facial droop,nogross weakness of arms, no gross weakness of legs. Gross sensation intact. No ataxia. Vital Signs: reviewed and remarkable Differential Diagnosis: dehydration, stroke, anemia, hypoglycemia, hyponatremia, hypernatremia, urinary tract infection, pneumonia, bronchitis, sepsis, gastroenteritis, additional abdominal pathology, metabolic abnormalities, as well as others were considered MEDICAL DECISION MAKING: This is a 73-year-old female brought in by family due to concern for dehydration given 4 to 5 days of nausea, vomiting, diarrhea, with increasing weakness and lightheadedness. Patient was afebrile and initially hemodynamically stable. Patient noted to be clinically dehydrated and was started on IV fluids upon my exam. She then was noted to be hypotensive on repeat vital sign check. Labs drawn and sent, IV established, EKG and chest x-ray performed at bedside interpreted me and patient monitored on telemetry. Patient was sent for CT of the abdomen pelvis following chest x-ray at bedside. While awaiting read of CT, I did review the chest x-ray which was suggestive of pneumonia. Patient's blood pressure did improve with IV fluids however once the first liter stopped she started to trend back down so a second liter was hung at bedside. Blood cultures, procalcitonin, and lactic acid added. Patient started on IV antibiotics for likely community-acquired pneumonia. Nasal swab obtained and sent for viral respiratory panel was negative. Patient had no significant leukocytosis although was noted to have an elevated procalcitonin. CT of the abdomen and pelvis ultimately reassuring and pneumonia once again noted. Patient was noted to have SIMRAN and given no pneumonia and solitary kidney, additional concern for kidney dysfunction. Patient did continue to respond to IV fluids and did receive more than 30 mL/KG based on ideal body weight while in the ER. She was noted to have slight hypoxia and was placed on oxygen via nasal cannula at 2 L/min with improvement. Patient and family updated several times at bedside on all results. Patient at increased risk for respiratory infection given history of tobacco abuse as well. Patient was noted to have an elevated troponin although I suspect this is more likely secondary to infection and SIMRAN. Patient denied any coming chest pain and EKG did not reveal any acute pathology. Consultation(s): 2239: Discussed with Dr. Santiago, [facility] hospitalist team, for additional evaluation and management. ER Treatment Provided: See below Diagnostics Interpreted By Me: -ECG: Normal sinus at 82, leftward axis, left bundle branch block, nonspecific ST/T wave changes -Cardiac Monitoring: An order was placed for continuous cardiac monitoring. The monitor shows a rate of 70 with normal sinus rhythm. -Laboratory studies: As stated above and show below. -Imaging studies: cxr: no cm, increased markings in the LLL, no pleural effusion, no wide mediastinum Triage Nursing Note Reviewed Prior/Outside Records Reviewed Critical Care: Critical care of 54 min performed to assess and manage high likelihood of life-threatening sepsis, involving labs and imaging performed with assessment to evaluate vomiting, diarrhea, dehydration, pneumonia diagnosis with frequent reassessment. This time includes bedside time, treatment discussions with patient/family/consultants, documentation time and excludes procedure time. Past Med/Surg History Problem List (Updated 07/03/24 @ 03:34 by Cheyenne Bear DO) Sepsis (Acute) Pneumonia (Acute) Fever (Acute) Generalized weakness (Acute) Diarrhea (Acute) Nausea & vomiting (Acute) Malignant neoplasm of overlapping sites of left female breast Malignant neoplasm of overlapping sites of right female breast Bilateral malignant neoplasm of breast in female (Chronic 10/09/19) Medical History (Updated 07/03/24 @ 03:34 by Cheyenne Bear DO) Ulnar nerve abnormality Weight disorder Osteoporosis Left subclavian artery occlusion Hyperlipidemia BBB (bundle branch block) Internal hemorrhoids HDL deficiency Hiatal hernia Heart murmur Diverticulosis Depressive disorder Carotid stenosis Atherosclerosis Anxiety LBBB (left bundle branch block) Hypertension Tobacco abuse NSTEMI (non-ST elevated myocardial infarction) Surgical History (Updated 03/30/20 @ 08:53 by Thu Wolfe RN) H/O arthroscopy of right knee H/O oophorectomy History of dilatation and curettage Status post total abdominal hysterectomy H/O cardiac catheterization Hx of cholecystectomy History of appendectomy History of cataract surgery Stented coronary artery Family History (Updated 03/30/20 @ 09:55 by Thu Wolfe, RN) Mother Cancer stomach cancer in her 30s Daughter Cancer thyroid cancer & lupus Social History (Updated 03/30/20 @ 09:59 by Thu Wolfe, RN) Smoking Status: Current every day smoker Tobacco Type: Cigarettes Age Started Using Tobacco: 21; packs per day: 0.5; Cigarettes Per Day: 1/2 PPD, none for the last 3 days due to illness; Second Hand Exposure: Yes; Do You Dip or Chew Tobacco: No; Tobacco Cessation Education Requested by Patient: No Hx Alcohol Use: No Hx Substance Use: No Preferred Language: Cape Verdean Communication Ability: Effective 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: No Beliefs That Will Affect Care: None marital status: Single Current Living Situation: Family Current Living Situation Comment: Pt lives with her son Scott and his Mitra current occupational status: employed current occupation: [employer] How many Children do You have: 2 Other Information That Helps Us Care for You: No Feels Safe at Home: Yes Safety Concerns: Feels Safe At This Time Childhood Exposure to Second-Hand Smoke: Yes Diet Comment: dentures both upper & lower caffeine: Yes (4 cups of coffee a day) during the past year weight has: remained stable Dental Care, Regularly: No Assistive Devices: Denture - Upper and Denture - Lower Assistive Devices Comment: upper dentures at home, lower dentures "don't come out" Allergies Allergies Allergy/AdvReac Type Severity Reaction Status Date / Time No Known Allergies Allergy Unknown Verified 03/17/24 13:26 Home Meds Home Medications Medication Instructions Recorded Confirmed Atenolol (Tenormin) 50 mg PO QAM #0 tabs 09/06/15 03/17/24 Amlodipine (Norvasc) 5 mg PO DAILY #0 tabs 02/27/17 03/17/24 anastrozole 1 mg tablet (Arimidex) 1 mg PO DAILY 03/30/20 03/17/24 Rosuvastatin Calcium (Crestor) 10 mg PO DAILY 09/14/20 03/17/24 alendronate 70 mg-cholecalciferol 1 tab PO .Weekly 09/14/20 03/17/24 (vitamin D3) 2,800 unit tablet (Fosamax Plus D) losartan 100 mg tablet 100 mg PO DAILY 09/14/20 03/17/24 omega-3 acid ethyl esters 1 gram 1 cap PO DAILY 09/14/20 03/17/24 capsule (Lovaza) cilostazol 50 mg tablet 50 mg PO BID 03/15/21 03/17/24 bupropion HCl 150 mg 24 hr tablet, 150 mg PO BID 03/15/22 03/17/24 extended release omeprazole 10 mg capsule,delayed 10 mg PO DAILY 03/14/23 03/17/24 release Previous Rx's Medication Instructions Recorded Clopidogrel Bisulfate (Clopidogrel) 75 mg PO QAM 30 days #30 tabs 02/28/17 Nitroglycerin (Nitrostat) 0.4 mg sublingual UD PRN Chest 02/28/17 Pain 30 days #60 tabs Results & Data (ED) Vital Signs Vital Signs - 24 hr 07/02/24 18:40 07/02/24 18:48 07/02/24 18:50 Temperature 36.9 C 38 C H Temperature Source Skin Oral Pulse Rate 71 83 Pulse Rate [Left Apical] 83 Respiratory Rate 18 16 Respiratory Effort / Characteristics Non-Labored Spontaneous Respiratory Depth Normal Respiratory Pattern Regular Blood Pressure 119/72 Blood Pressure [Right Arm] Blood Pressure Mean 87 Blood Pressure Mean [Right Arm] Pulse Oximetry 94 Oxygen Delivery Method Room Air Oxygen Flow Rate Sepsis Recent Fever Within 48 Hours Yes Sepsis New/Unexplained Change in Mental Status No Sepsis Action Taken by Nursing No Action Required Oxygen Flow Rate - Titration Pulse Oximetry Post Tiitration 07/02/24 19:31 07/02/24 19:51 07/02/24 20:06 Temperature Temperature Source Pulse Rate 70 76 Pulse Rate [Left Apical] Respiratory Rate 23 28 H Respiratory Effort / Characteristics Respiratory Depth Respiratory Pattern Blood Pressure Blood Pressure [Right Arm] 95/48 L Blood Pressure Mean Blood Pressure Mean [Right Arm] 63 Pulse Oximetry 93 92 Oxygen Delivery Method Room Air Room Air Oxygen Flow Rate Sepsis Recent Fever Within 48 Hours Sepsis New/Unexplained Change in Mental Status Sepsis Action Taken by Nursing Oxygen Flow Rate - Titration Pulse Oximetry Post Tiitration 07/02/24 20:30 07/02/24 20:42 07/02/24 20:51 Temperature Temperature Source Pulse Rate 72 70 70 Pulse Rate [Left Apical] Respiratory Rate 18 19 25 H Respiratory Effort / Characteristics Respiratory Depth Respiratory Pattern Blood Pressure 95/41 L Blood Pressure [Right Arm] Blood Pressure Mean 59 Blood Pressure Mean [Right Arm] Pulse Oximetry 91 93 89 L Oxygen Delivery Method Room Air Room Air Room Air Oxygen Flow Rate Sepsis Recent Fever Within 48 Hours Sepsis New/Unexplained Change in Mental Status Sepsis Action Taken by Nursing Oxygen Flow Rate - Titration Pulse Oximetry Post Tiitration 07/02/24 21:00 07/02/24 21:03 07/02/24 21:06 Temperature 37.5 C Temperature Source Oral Pulse Rate 69 Pulse Rate [Left Apical] 72 Respiratory Rate 24 22 Respiratory Effort / Characteristics Respiratory Depth Respiratory Pattern Blood Pressure 82/41 L Blood Pressure [Right Arm] 81/42 L Blood Pressure Mean 54 Blood Pressure Mean [Right Arm] 55 Pulse Oximetry 90 89 L 89 L Oxygen Delivery Method Room Air Room Air Nasal Cannula Oxygen Flow Rate 0 Sepsis Recent Fever Within 48 Hours Sepsis New/Unexplained Change in Mental Status Sepsis Action Taken by Nursing Oxygen Flow Rate - Titration 2 Pulse Oximetry Post Tiitration 92 07/02/24 21:21 07/02/24 21:39 07/02/24 21:45 Temperature Temperature Source Pulse Rate 68 67 67 Pulse Rate [Left Apical] Respiratory Rate 24 24 24 Respiratory Effort / Characteristics Respiratory Depth Respiratory Pattern Blood Pressure Blood Pressure [Right Arm] Blood Pressure Mean Blood Pressure Mean [Right Arm] Pulse Oximetry 95 94 Oxygen Delivery Method Nasal Cannula Nasal Cannula Oxygen Flow Rate 2 2 Sepsis Recent Fever Within 48 Hours Sepsis New/Unexplained Change in Mental Status Sepsis Action Taken by Nursing Oxygen Flow Rate - Titration Pulse Oximetry Post Tiitration 07/02/24 22:00 07/02/24 22:27 Temperature Temperature Source Pulse Rate 65 59 L Pulse Rate [Left Apical] Respiratory Rate 24 23 Respiratory Effort / Characteristics Respiratory Depth Respiratory Pattern Blood Pressure 89/45 L Blood Pressure [Right Arm] Blood Pressure Mean 59 Blood Pressure Mean [Right Arm] Pulse Oximetry 96 97 Oxygen Delivery Method Nasal Cannula Nasal Cannula Oxygen Flow Rate 2 2 Sepsis Recent Fever Within 48 Hours Sepsis New/Unexplained Change in Mental Status Sepsis Action Taken by Nursing Oxygen Flow Rate - Titration Pulse Oximetry Post Tiitration Laboratory Data 07/02/24 18:35 07/02/24 18:35 Lab Results 07/02/24 07/02/24 07/02/24 Range/Units 18:35 19:37 21:13 WBC 8.47 (4.8-10.8) K/ul RBC 4.00 L (4.20-5.40) M/uL Hgb 12.3 (12.0-16.0) g/dl Hct 36.7 L (37.0-47.0) % MCV 91.8 (80.0-100.0) fL MCH 30.8 (25.0-34.0) pg MCHC 33.5 (32.0-36.0) g/dL RDW Std Deviation 44.9 (36.4-46.3) fL RDW Coeff of Liang 13.3 (11.5-14.5) % Plt Count 206 (130-400) K/uL MPV 9.9 (9.4-12.4) fL Immature Gran % (Auto) 0.7 % Neut % (Auto) 88.0 % Lymph % (Auto) 5.8 % Harrison % (Auto) 5.3 % Eos % (Auto) 0.0 % Baso % (Auto) 0.2 % Neut # (Auto) 7.45 H (1.40-6.50) K/uL Lymph # (Auto) 0.49 L (1.20-3.40) K/uL Harrison # (Auto) 0.45 (0.11-0.59) K/uL Eos # (Auto) 0.00 (0.00-0.50) K/uL Baso # (Auto) 0.02 (0.00-0.20) K/uL Immature Gran # (Auto) 0.06 (0.01-0.20) K/uL PT 11.2 (9.0-12.0) Seconds INR 1.0 (0.9-1.1) Sodium 134 L (136-145) mmol/L Potassium 3.9 (3.5-5.1) mmol/L Chloride 104 (98-107) mmol/L Carbon Dioxide 18 L (21-32) mmol/L Anion Gap 12 H (3-11) BUN 35 H (6-23) mg/dl Creatinine 1.55 H (0.6-1.2) mg/dl Est Cr Clr Drug Dosing 29.5 ml/min eGFR 35.60 BUN/Creatinine Ratio 22.6 H (10-20) Glucose 113 H (70-99(Fasting)) mg/dl Lactate (0.4-2.0) mmol/L Calcium 9.3 (8.6-10.3) mg/dl Magnesium 2.0 (1.7-2.4) mg/dl Total Bilirubin 0.9 (0.2-1.0) mg/dl AST 45 H (13-39) U/L ALT 26 (7-52) U/L Alkaline Phosphatase 82 (34-104) U/L Troponin I High Sens 49.7 H (0-14) pg/ml Total Protein 7.9 (6.0-8.3) gm/dl Albumin 3.8 (3.4-5.0) gm/dl Globulin 4.1 H (2.5-4.0) gm/dl Albumin/Globulin Ratio 0.9 (0.9-2) Lipase 37 (11-82) U/L Procalcitonin 1.37 H (0-0.5) ng/ml TSH 2.631 (0.300-4.500) uIu/ml Nasal Screen MRSA (PCR) (Negative) Adenovirus (PCR) Not Detected (NotDetected) B. pertussis DNA (PCR) Not Detected (NotDetected) B.parapertussis DNA PCR Not Detected (NotDetected) C. pneumoniae DNA (PCR) Not Detected (NotDetected) Coronavirus OC43 (PCR) Not Detected (NotDetected) Coronavirus HKU1 (PCR) Not Detected (NotDetected) Coronavirus 229E (PCR) Not Detected (NotDetected) SARS-CoV-2 (PCR) Not Detected (NotDetected) Coronavirus NL63 (PCR) Not Detected (NotDetected) Human Metapneumovir PCR Not Detected (NotDetected) Influenza Type A (PCR) Not Detected (NotDetected) Influenza Type B (PCR) Not Detected (NotDetected) M. pneumoniae (PCR) Not Detected (NotDetected) Parainfluenza 1 (PCR) Not Detected (NotDetected) Parainfluenza 2 (PCR) Not Detected (NotDetected) Parainfluenza 3 (PCR) Not Detected (NotDetected) Parainfluenza 4 (PCR) Not Detected (NotDetected) RSV (PCR) Not Detected (NotDetected) Entero/Rhino (PCR) Not Detected (NotDetected) 07/02/24 07/02/24 Range/Units 21:37 22:32 WBC (4.8-10.8) K/ul RBC (4.20-5.40) M/uL Hgb (12.0-16.0) g/dl Hct (37.0-47.0) % MCV (80.0-100.0) fL MCH (25.0-34.0) pg MCHC (32.0-36.0) g/dL RDW Std Deviation (36.4-46.3) fL RDW Coeff of Liang (11.5-14.5) % Plt Count (130-400) K/uL MPV (9.4-12.4) fL Immature Gran % (Auto) % Neut % (Auto) % Lymph % (Auto) % Harrison % (Auto) % Eos % (Auto) % Baso % (Auto) % Neut # (Auto) (1.40-6.50) K/uL Lymph # (Auto) (1.20-3.40) K/uL Harrison # (Auto) (0.11-0.59) K/uL Eos # (Auto) (0.00-0.50) K/uL Baso # (Auto) (0.00-0.20) K/uL Immature Gran # (Auto) (0.01-0.20) K/uL PT (9.0-12.0) Seconds INR (0.9-1.1) Sodium (136-145) mmol/L Potassium (3.5-5.1) mmol/L Chloride (98-107) mmol/L Carbon Dioxide (21-32) mmol/L Anion Gap (3-11) BUN (6-23) mg/dl Creatinine (0.6-1.2) mg/dl Est Cr Clr Drug Dosing ml/min eGFR BUN/Creatinine Ratio (10-20) Glucose (70-99(Fasting)) mg/dl Lactate 0.9 (0.4-2.0) mmol/L Calcium (8.6-10.3) mg/dl Magnesium (1.7-2.4) mg/dl Total Bilirubin (0.2-1.0) mg/dl AST (13-39) U/L ALT (7-52) U/L Alkaline Phosphatase (34-104) U/L Troponin I High Sens (0-14) pg/ml Total Protein (6.0-8.3) gm/dl Albumin (3.4-5.0) gm/dl Globulin (2.5-4.0) gm/dl Albumin/Globulin Ratio (0.9-2) Lipase (11-82) U/L Procalcitonin (0-0.5) ng/ml TSH (0.300-4.500) uIu/ml Nasal Screen MRSA (PCR) Negative (Negative) Adenovirus (PCR) (NotDetected) B. pertussis DNA (PCR) (NotDetected) B.parapertussis DNA PCR (NotDetected) C. pneumoniae DNA (PCR) (NotDetected) Coronavirus OC43 (PCR) (NotDetected) Coronavirus HKU1 (PCR) (NotDetected) Coronavirus 229E (PCR) (NotDetected) SARS-CoV-2 (PCR) (NotDetected) Coronavirus NL63 (PCR) (NotDetected) Human Metapneumovir PCR (NotDetected) Influenza Type A (PCR) (NotDetected) Influenza Type B (PCR) (NotDetected) M. pneumoniae (PCR) (NotDetected) Parainfluenza 1 (PCR) (NotDetected) Parainfluenza 2 (PCR) (NotDetected) Parainfluenza 3 (PCR) (NotDetected) Parainfluenza 4 (PCR) (NotDetected) RSV (PCR) (NotDetected) Entero/Rhino (PCR) (NotDetected) Administered Medications Discontinued Medications Azithromycin (Azithromycin 250 Mg Tab) 500 mg PO NOW ONE Stop: 07/02/24 21:40 Last Admin: 07/02/24 21:48 Dose: 500 mg Documented By: GERARDO Sodium Chloride (Nss) 1,000 mls @ 999 mls/hr IV .Q1H1M ONE Stop: 07/02/24 20:23 Last Infusion: 07/02/24 21:07 Dose: Infused Documented By: Admin: 07/02/24 19:23 Dose: 999 mls/hr Documented By: GERARDO Famotidine (Pepcid 20mg Iv Push) 20 mg in 5 mls @ 2.5 mls/min IV NOW STA Stop: 07/02/24 19:24 Last Admin: 07/02/24 19:38 Dose: 2.5 mls/min Documented By: GERARDO Acetaminophen (Ofirmev) 1,000 mg in 100 mls @ 400 mls/hr IV NOW STA Stop: 07/02/24 19:37 Last Infusion: 07/02/24 21:07 Dose: Infused Documented By: Admin: 07/02/24 19:38 Dose: 400 mls/hr Documented By: GERARDO Lactated Ringer's (Lr) 1,000 mls @ 999 mls/hr IV .Q1H1M ONE Stop: 07/02/24 22:12 Last Infusion: 07/02/24 23:21 Dose: Infused Documented By: JUAN DAVID Admin: 07/02/24 21:44 Dose: 999 mls/hr Documented By: GERARDO Ceftriaxone Sodium (Rocephin) 2,000 mg in 50 mls @ 100 mls/hr IV NOW STA Stop: 07/02/24 21:43 Last Infusion: 07/02/24 22:46 Dose: Infused Documented By: JUAN DAVID Admin: 07/02/24 21:49 Dose: 100 mls/hr Documented By: JUAN DAVID Piperacillin Sod/Tazobactam Sod (Zosyn) 4.5 gm in 100 mls @ 200 mls/hr IV NOW STA Stop: 07/03/24 00:27 Last Infusion: 07/03/24 02:06 Dose: Infused Documented By: Admin: 07/03/24 00:29 Dose: 200 mls/hr Documented By: XUAN Sodium Chloride (Nss) 1,000 mls @ 999 mls/hr IV .Q1H1M ONE Stop: 07/03/24 03:13 Last Admin: 07/03/24 02:24 Dose: 999 mls/hr Documented By: MARGA Imaging Data Radiologist's Impression: Chest X-Ray 07/02/24 19:24 Exam(s): XR CXR 1 VIEW EXAM: XR Chest, 1 View CLINICAL HISTORY: Reason for exam: sob. TECHNIQUE: Frontal view of the chest. COMPARISON: No relevant prior studies available. FINDINGS: Lungs: Patchy consolidation seen in the left lower zone. Pleural space: Unremarkable. No pneumothorax. Heart: Unremarkable. No cardiomegaly. Mediastinum: Unremarkable. Normal mediastinal contour. Bones/joints: Unremarkable. No acute fracture. IMPRESSION: Left lower lobe pneumonia Electronically signed by: Delfin Landin MD 07/02/24 20:32 PM Abdomen/Pelvis CT 07/02/24 20:12 Exam(s): CT ABDOMEN + PELVIS Without Contrast EXAM: CT Abdomen and Pelvis Without Intravenous Contrast CLINICAL HISTORY: Reason for exam: n/v/d, left abd pain. TECHNIQUE: Axial computed tomography images of the abdomen and pelvis without intravenous contrast. CTDI is 15.27 mGy and DLP is 676.51 mGy-cm. Automated exposure control was utilized for the study. A dose lowering technique was utilized adhering to the principles of ALARA. COMPARISON: 01/12/22 FINDINGS: Lung bases: Left lower lobe airspace opacity consistent with pneumonia. Mediastinum: Small sliding-type hiatal hernia. ABDOMEN: Liver: Unremarkable. Gallbladder and bile ducts: Gallbladder not visualized, presumed surgically absent. Prominent common bile duct, likely reservoir effect. Pancreas: Unremarkable. No ductal dilation. Spleen: Unremarkable. No splenomegaly. Adrenals: Unremarkable. No mass. Kidneys and ureters: Left nephrectomy. Right kidney and collecting system are unremarkable. Stomach and bowel: No bowel obstruction. Sigmoid diverticulosis. No mucosal thickening. PELVIS: Appendix: Appendix not identified. No secondary signs of appendicitis. Bladder: Decompressed urinary bladder, limiting evaluation. No stones. Reproductive: Hysterectomy. ABDOMEN and PELVIS: Intraperitoneal space: Unremarkable. No free air, significant free fluid, or fluid collection. Bones/joints: No acute fracture. No dislocation. Soft tissues: Unremarkable. Vasculature: Atherosclerosis of the aorta without aneurysm. Lymph nodes: Unremarkable. No enlarged lymph nodes. IMPRESSION: Left lower lobe airspace opacity consistent with pneumonia. Imaging follow-up to resolution recommended. No acute intra-abdominal findings. Electronically signed by: Gio Link M.D. 07/02/24 23:07 PM Discharge Plan Visit Data Chief Complaint: Flu Like Symptoms Stated Complaint: DIZZY, FLU, ABD PAIN, COUGHING ED Provider: Cheyenne Bear Discharge Problem: Nausea & vomiting, Diarrhea, Generalized weakness, Fever, Pneumonia, Sepsis Patient Disposition: Admitted As Inpatient Discharge Instructions Interventions: ED Discharge Assessment Last Done: 07/03/24 01:03
[2024-07-02 19:35] LABS: Basophils # (auto) 0.02 K/uL (0.00-0.20); Basophils % (auto) 0.2 %; Hematocrit (blood only) 36.7 % (37.0-47.0); Hemoglobin 12.3 g/dl (12.0-16.0); Immature Granulocytes # (auto) 0.06 K/uL (0.01-0.20); Immature Granulocytes % (auto) 0.7 %; Lymphocytes # (auto) 0.49 K/uL (1.20-3.40); Lymphocytes % (auto) 5.8 %; Mean Corpuscular Hemoglobin 30.8 pg (25.0-34.0); Mean Corpuscular Hgb Conc 33.5 g/dL (32.0-36.0); Mean Corpuscular Volume 91.8 fL (80.0-100.0); Mean Platelet Volume 9.9 fL (9.4-12.4); Monocytes # (auto) 0.45 K/uL (0.11-0.59); Monocytes % (auto) 5.3 %; Neutrophils # (auto) 7.45 K/uL (1.40-6.50); Platelet Count 206 K/uL (130-400); RDW Coefficient of Variation 13.3 % (11.5-14.5); RDW Standard Deviation 44.9 fL (36.4-46.3); White Blood Count 8.47 K/ul (4.8-10.8)
[2024-07-02] MEDS: ACETAMINOPHEN 1,000 MG/100 ML VIAL IV STA (19:38)
[2024-07-02] MEDS: FAMOTIDINE 20MG IV PUSH 20 MG/5 ML SYR IV STA (19:38)
[2024-07-02 19:52] LABS: Albumin Globulin Ratio 0.9 (0.9-2); Albumin Level 3.8 gm/dl (3.4-5.0); BUN Creatinine Ratio 22.6 (10-20); Bilirubin,Total 0.9 mg/dl (0.2-1.0); Calcium 9.3 mg/dl (8.6-10.3); Creatinine Clr Calc Pharmacy 29.5 ml/min; Globulin 4.1 gm/dl (2.5-4.0); Potassium 3.9 mmol/L (3.5-5.1); Total Protein 7.9 gm/dl (6.0-8.3)
[2024-07-02 19:58] LABS: Troponin I High Sensitivity 49.7 pg/ml (0-14)
[2024-07-02 20:08] LABS: Thyroid Stimulating Hormone 2.631 uIu/ml (0.300-4.500)
[2024-07-02 20:10] LABS: Prothrombin Time 11.2 Seconds (9.0-12.0)
--- NOTE | 2024-07-02 20:33 | XRay Report ---
Exam(s): XR CXR 1 VIEW EXAM: XR Chest, 1 View CLINICAL HISTORY: Reason for exam: sob. TECHNIQUE: Frontal view of the chest. COMPARISON: No relevant prior studies available. FINDINGS: Lungs: Patchy consolidation seen in the left lower zone. Pleural space: Unremarkable. No pneumothorax. Heart: Unremarkable. No cardiomegaly. Mediastinum: Unremarkable. Normal mediastinal contour. Bones/joints: Unremarkable. No acute fracture. IMPRESSION: Left lower lobe pneumonia Electronically signed by: Delfin Landin MD 07/02/24 20:32 PM
[2024-07-02 20:42] LABS: Adenovirus PCR Not Detected (NotDetected); Bordetella parapertussis PCR Not Detected (NotDetected); Bordetella pertussis PCR Not Detected (NotDetected); Chlamydia pneumoniae PCR Not Detected (NotDetected); Coronavirus 229E PCR Not Detected (NotDetected); Coronavirus CoV-2 (COVID19)PCR Not Detected (NotDetected); Coronavirus HKU1 PCR Not Detected (NotDetected); Coronavirus NL63 PCR Not Detected (NotDetected); Coronavirus OC43PCR Not Detected (NotDetected); Human Metapneumovirus PCR Not Detected (NotDetected); Influenza A PCR Not Detected (NotDetected); Influenza B PCR Not Detected (NotDetected); Mycoplasma pneumoniae PCR Not Detected (NotDetected); Parainfluenza Virus 1 PCR Not Detected (NotDetected); Parainfluenza Virus 2 PCR Not Detected (NotDetected); Parainfluenza Virus 3 PCR Not Detected (NotDetected); Parainfluenza Virus 4 PCR Not Detected (NotDetected); Respiratory Syncytial VirusPCR Not Detected (NotDetected); Rhinovirus/Enterovirus PCR Not Detected (NotDetected)
[2024-07-02] MEDS: LACTATED RINGER'S 1,000 ML IV ONE (21:44)
[2024-07-02] MEDS: AZITHROMYCIN 250 MG TAB PO ONE (21:48)
[2024-07-02] MEDS: cefTRIAXone SODIUM 2,000 MG/50 ML BAG IV STA (21:49)
--- NOTE | 2024-07-02 22:40 | History & Physical Report ---
Date of Service July 02, 2024 Assessment & Plan (1) Pneumonia involving left lung: (2) Sepsis: (3) Acute kidney injury: (4) Elevated troponin: (5) Generalized weakness: Plan Sepsis due to pneumonia involving left lung- Patient initially presented with symptoms of nausea and vomiting, prompting a CT scan of abdomen pelvis, which revealed a left lower lobe infiltrate, and was otherwise normal. Concerns regarding possible aspiration as cause of pneumonia Patient initially received ceftriaxone 2 g IV and azithromycin 500 mg p.o. from the ED Admit on Zosyn 4.5 g IV every 8 hours, DuoNebs every 2 hours as needed, acetaminophen 1 g IV every 8 hours as needed, and pantoprazole 40 mg IV daily MRSA swab ordered Sputum Gram stain and culture ordered Bio[employer] testing negative Patient did have acute kidney injury due to nausea and vomiting, with decreased oral intake. Creatinine was 1.55 with base 1.04 From the ED patient received LR 1 L bolus, followed by NSS 1 L bolus. Maintenance fluids NSS at 80 mL/h x 1 L, and repeat laboratories every morning Initial troponin 49.7, likely supply/demand mismatch, repeat laboratories in a.m. History of Present Illness Chief Complaint: The patient presents to the emergency department via private vehicle with family at bedside, due to their concerns regarding several days of generalized weakness, dizziness, vomiting and diarrhea, abdominal pain, fevers and chills. Primary Care Provider: Yanet Cheema The patient is a 73-year-old female with a past medical history including metast atic breast cancer, hypertension, depression, peripheral arterial disease, GERD and hyperlipidemia. She presents to the emergency department symptoms as noted above. She presents to the emergency department with symptoms as noted above. Patient does report that she was able to take all of her usual routine medications today. Allergies Allergy/AdvReac Type Severity Reaction Status Date / Time No Known Allergies Allergy Unknown Verified 03/17/24 13:26 Home Medications Medication Instructions Recorded Confirmed Type Atenolol (Tenormin) 50 mg PO QAM #0 tabs 09/06/15 03/17/24 History Amlodipine (Norvasc) 5 mg PO DAILY #0 tabs 02/27/17 03/17/24 History Clopidogrel Bisulfate (Clopidogrel) 75 mg PO QAM 30 days #30 tabs 02/28/17 03/17/24 Rx Nitroglycerin (Nitrostat) 0.4 mg sublingual UD PRN Chest 02/28/17 03/17/24 Rx Pain 30 days #60 tabs anastrozole 1 mg tablet (Arimidex) 1 mg PO DAILY 03/30/20 03/17/24 History Rosuvastatin Calcium (Crestor) 10 mg PO DAILY 09/14/20 03/17/24 History alendronate 70 mg-cholecalciferol 1 tab PO .Weekly 09/14/20 03/17/24 History (vitamin D3) 2,800 unit tablet (Fosamax Plus D) losartan 100 mg tablet 100 mg PO DAILY 09/14/20 03/17/24 History omega-3 acid ethyl esters 1 gram 1 cap PO DAILY 09/14/20 03/17/24 History capsule (Lovaza) cilostazol 50 mg tablet 50 mg PO BID 03/15/21 03/17/24 History bupropion HCl 150 mg 24 hr tablet, 150 mg PO BID 03/15/22 03/17/24 History extended release omeprazole 10 mg capsule,delayed 10 mg PO DAILY 03/14/23 03/17/24 History release Past Med/Surg History Problem List (Updated 07/03/24 @ 05:36 by Armaan Santiago MD) Acute kidney injury Pneumonia involving left lung Sepsis (Acute) Pneumonia (Acute) Fever (Acute) Generalized weakness (Acute) Diarrhea (Acute) Nausea & vomiting (Acute) Malignant neoplasm of overlapping sites of left female breast Malignant neoplasm of overlapping sites of right female breast Bilateral malignant neoplasm of breast in female (Chronic 10/09/19) Medical History (Updated 07/03/24 @ 05:36 by Armaan Santiago MD) Ulnar nerve abnormality Weight disorder Osteoporosis Left subclavian artery occlusion Hyperlipidemia BBB (bundle branch block) Internal hemorrhoids HDL deficiency Hiatal hernia Heart murmur Diverticulosis Depressive disorder Carotid stenosis Atherosclerosis Anxiety LBBB (left bundle branch block) Hypertension Tobacco abuse NSTEMI (non-ST elevated myocardial infarction) Surgical History (Updated 03/30/20 @ 08:53 by Thu Wolfe, DUSTIN) H/O arthroscopy of right knee H/O oophorectomy History of dilatation and curettage Status post total abdominal hysterectomy H/O cardiac catheterization Hx of cholecystectomy History of appendectomy History of cataract surgery Stented coronary artery Family History (Updated 03/30/20 @ 09:55 by Thu Wolfe RN) Mother Cancer stomach cancer in her 30s Daughter Cancer thyroid cancer & lupus Social History (Updated 03/30/20 @ 09:59 by Thu Wolfe RN) Smoking Status: Current every day smoker Tobacco Type: Cigarettes Age Started Using Tobacco: 21; packs per day: 0.5; Cigarettes Per Day: 1/2 PPD, none for the last 3 days due to illness; Second Hand Exposure: Yes; Do You Dip or Chew Tobacco: No; Tobacco Cessation Education Requested by Patient: No Hx Alcohol Use: No Hx Substance Use: No Preferred Language: Swazi Communication Ability: Effective Post Anesthesia Nurse Required: No Beliefs That Will Affect Care: None marital status: Single Current Living Situation: Family Current Living Situation Comment: Pt lives with her son Scott and his Mitra current occupational status: employed current occupation: [employer] How many Children do You have: 2 Other Information That Helps Us Care for You: No Feels Safe at Home: Yes Safety Concerns: Feels Safe At This Time Childhood Exposure to Second-Hand Smoke: Yes Diet Comment: dentures both upper & lower caffeine: Yes (4 cups of coffee a day) during the past year weight has: remained stable Dental Care, Regularly: No Assistive Devices: Denture - Upper and Denture - Lower Assistive Devices Comment: upper dentures at home, lower dentures "don't come out" Review of Systems Review of Systems: The patient denies chest pain, palpitations, lower extremity swelling, sore throat, fevers, chills, sweats, blood in urine or stool, dysuria, urinary frequency or urgency, lightheadedness, dizziness, headache, loss of consciousness, rash, abnormal bruising or bleeding, focal weakness, numbness or tingling in arms or legs, generalized arthralgias or myalgias, back or neck pain, or night sweats. The review of systems is otherwise negative other than for that already noted above, and at least 10 systems have been reviewed. Physical Exam Physical Exam: The patient is awake, alert and oriented 3, well developed and well nourished, normocephalic and atraumatic, lying in bed and in no acute distress. HEENT--PERRL, EOMI, mucous membranes and oropharynx dry. Neck--supple. No JVD. No bruits. Thyroid normal, trachea midline, no adenopathy. Heart--normal S1 and S2. No murmurs, rubs or gallops. Lungs--decreased breath sounds at the bases bilaterally, no respiratory distress, no accessory muscle use. Abdomen--normal bowel sounds and soft. Nontender. Nondistended, no hernias or masses, no organomegaly. Extremities--no cyanosis or clubbing. No edema. Dermatologic--normal skin turgor, normal color, no abnormal lymph nodes, no rash. Neurologic--cranial nerves II through XII grossly intact. Rheumatologic--normal range of motion. Psychiatric--normal affect. Results & Data Results & Data Vital Signs (Past 12 Hours) Vital Signs Temp Pulse Pulse Resp BP BP Pulse Ox 07/02/24 22:00 65 24 89/45 L 96 07/02/24 21:45 67 24 94 07/02/24 21:39 67 24 07/02/24 21:21 68 24 95 07/02/24 21:06 89 L 07/02/24 21:03 37.5 C 72 22 81/42 L 89 L 07/02/24 21:00 69 24 82/41 L 90 07/02/24 20:51 70 25 H 89 L 07/02/24 20:42 70 19 93 07/02/24 20:30 72 18 95/41 L 91 07/02/24 20:06 76 28 H 92 07/02/24 19:51 70 23 93 07/02/24 19:31 95/48 L 07/02/24 18:50 83 07/02/24 18:48 38 C H 83 16 07/02/24 18:40 36.9 C 71 18 119/72 94 O2 Del Method O2 Flow Rate 07/02/24 22:00 Nasal Cannula 2 07/02/24 21:45 Nasal Cannula 2 07/02/24 21:39 07/02/24 21:21 Nasal Cannula 2 07/02/24 21:06 Nasal Cannula 0 07/02/24 21:03 Room Air 07/02/24 21:00 Room Air 07/02/24 20:51 Room Air 07/02/24 20:42 Room Air 07/02/24 20:30 Room Air 07/02/24 20:06 Room Air 07/02/24 19:51 Room Air 07/02/24 19:31 07/02/24 18:50 07/02/24 18:48 07/02/24 18:40 Room Air Laboratory Results Laboratory Results WBC 8.47 K/ul (4.8-10.8) 07/02/24 18:35 RBC 4.00 M/uL (4.20-5.40) L 07/02/24 18:35 Hgb 12.3 g/dl (12.0-16.0) 07/02/24 18:35 Hct 36.7 % (37.0-47.0) L 07/02/24 18:35 MCV 91.8 fL (80.0-100.0) 07/02/24 18:35 MCH 30.8 pg (25.0-34.0) 07/02/24 18:35 MCHC 33.5 g/dL (32.0-36.0) 07/02/24 18:35 RDW Std Deviation 44.9 fL (36.4-46.3) 07/02/24 18:35 RDW Coeff of Liang 13.3 % (11.5-14.5) 07/02/24 18:35 Plt Count 206 K/uL (130-400) 07/02/24 18:35 MPV 9.9 fL (9.4-12.4) 07/02/24 18:35 Immature Gran % (Auto) 0.7 % 07/02/24 18:35 Neut % (Auto) 88.0 % 07/02/24 18:35 Lymph % (Auto) 5.8 % 07/02/24 18:35 [place] % (Auto) 5.3 % 07/02/24 18:35 Eos % (Auto) 0.0 % 07/02/24 18:35 Baso % (Auto) 0.2 % 07/02/24 18:35 Neut # (Auto) 7.45 K/uL (1.40-6.50) H 07/02/24 18:35 Lymph # (Auto) 0.49 K/uL (1.20-3.40) L 07/02/24 18:35 [place] # (Auto) 0.45 K/uL (0.11-0.59) 07/02/24 18:35 Eos # (Auto) 0.00 K/uL (0.00-0.50) 07/02/24 18:35 Baso # (Auto) 0.02 K/uL (0.00-0.20) 07/02/24 18:35 Immature Gran # (Auto) 0.06 K/uL (0.01-0.20) 07/02/24 18:35 PT 11.2 Seconds (9.0-12.0) 07/02/24 18:35 INR 1.0 (0.9-1.1) 07/02/24 18:35 Sodium 134 mmol/L (136-145) L 07/02/24 18:35 Potassium 3.9 mmol/L (3.5-5.1) 07/02/24 18:35 Chloride 104 mmol/L (98-107) 07/02/24 18:35 Carbon Dioxide 18 mmol/L (21-32) L 07/02/24 18:35 Anion Gap 12 (3-11) H 07/02/24 18:35 BUN 35 mg/dl (6-23) H 07/02/24 18:35 Creatinine 1.55 mg/dl (0.6-1.2) H 07/02/24 18:35 Est Cr Clr Drug Dosing 29.5 ml/min 07/02/24 18:35 eGFR 35.60 07/02/24 18:35 BUN/Creatinine Ratio 22.6 (10-20) H 07/02/24 18:35 Glucose 113 mg/dl (70-99(Fasting)) H 07/02/24 18:35 Lactate 0.9 mmol/L (0.4-2.0) 07/02/24 21:37 Calcium 9.3 mg/dl (8.6-10.3) 07/02/24 18:35 Magnesium 2.0 mg/dl (1.7-2.4) 07/02/24 18:35 Total Bilirubin 0.9 mg/dl (0.2-1.0) 07/02/24 18:35 AST 45 U/L (13-39) H 07/02/24 18:35 ALT 26 U/L (7-52) 07/02/24 18:35 Alkaline Phosphatase 82 U/L (34-104) 07/02/24 18:35 Troponin I High Sens 49.7 pg/ml (0-14) H 07/02/24 18:35 Total Protein 7.9 gm/dl (6.0-8.3) 07/02/24 18:35 Albumin 3.8 gm/dl (3.4-5.0) 07/02/24 18:35 Globulin 4.1 gm/dl (2.5-4.0) H 07/02/24 18:35 Albumin/Globulin Ratio 0.9 (0.9-2) 07/02/24 18:35 Lipase 37 U/L (11-82) 07/02/24 18:35 Procalcitonin 1.37 ng/ml (0-0.5) H 07/02/24 21:13 TSH 2.631 uIu/ml (0.300-4.500) 07/02/24 18:35 Nasal Screen MRSA (PCR) Negative (Negative) 07/02/24 22:32 Stl C. cayetanensis PCR Not Detected (NotDetected) 07/03/24 00:39 Stool Rotavirus A PCR Not Detected (NotDetected) 07/03/24 00:39 Stl Adenov F 40/41 PCR Not Detected (NotDetected) 07/03/24 00:39 Stool Astrovirus (PCR) Not Detected (NotDetected) 07/03/24 00:39 Stool Campylobacter PCR Not Detected (NotDetected) 07/03/24 00:39 Stool Cryptosporidium PCR Not Detected (NotDetected) 07/03/24 00:39 Stl E.coli Shiga Tox PCR Not Detected (NotDetected) 07/03/24 00:39 Stl Enterotoxigenic E PCR Not Detected (NotDetected) 07/03/24 00:39 Stool EPEC (PCR) Not Detected (NotDetected) 07/03/24 00:39 Stool EAEC (PCR) Not Detected (NotDetected) 07/03/24 00:39 Stl E. histolytica PCR Not Detected (NotDetected) 07/03/24 00:39 Stool Giardia Lamblia PCR Not Detected (NotDetected) 07/03/24 00:39 Stool Salmonella PCR Not Detected (NotDetected) 07/03/24 00:39 Stool Sapovirus (PCR) Not Detected (NotDetected) 07/03/24 00:39 Stl P. shigelloides PCR Not Detected (NotDetected) 07/03/24 00:39 Stl Shigella/EIEC PCR Not Detected (NotDetected) 07/03/24 00:39 St Y.enterocolitica PCR Not Detected (NotDetected) 07/03/24 00:39 Stool Vibrio (PCR) Not Detected (NotDetected) 07/03/24 00:39 Stl Vibrio cholerae PCR Not Detected (NotDetected) 07/03/24 00:39 Stl Norovirus GI/GII PCR Not Detected (NotDetected) 07/03/24 00:39 Adenovirus (PCR) Not Detected (NotDetected) 07/02/24 19:37 B. pertussis DNA (PCR) Not Detected (NotDetected) 07/02/24 19:37 B.parapertussis DNA PCR Not Detected (NotDetected) 07/02/24 19:37 C. pneumoniae DNA (PCR) Not Detected (NotDetected) 07/02/24 19:37 Coronavirus OC43 (PCR) Not Detected (NotDetected) 07/02/24 19:37 Coronavirus HKU1 (PCR) Not Detected (NotDetected) 07/02/24 19:37 Coronavirus 229E (PCR) Not Detected (NotDetected) 07/02/24 19:37 SARS-CoV-2 (PCR) Not Detected (NotDetected) 07/02/24 19:37 Coronavirus NL63 (PCR) Not Detected (NotDetected) 07/02/24 19:37 Human Metapneumovir PCR Not Detected (NotDetected) 07/02/24 19:37 Influenza Type A (PCR) Not Detected (NotDetected) 07/02/24 19:37 Influenza Type B (PCR) Not Detected (NotDetected) 07/02/24 19:37 M. pneumoniae (PCR) Not Detected (NotDetected) 07/02/24 19:37 Parainfluenza 1 (PCR) Not Detected (NotDetected) 07/02/24 19:37 Parainfluenza 2 (PCR) Not Detected (NotDetected) 07/02/24 19:37 Parainfluenza 3 (PCR) Not Detected (NotDetected) 11/07/24 19:37 Parainfluenza 4 (PCR) Not Detected (NotDetected) 07/02/24 19:37 RSV (PCR) Not Detected (NotDetected) 07/02/24 19:37 Entero/Rhino (PCR) Not Detected (NotDetected) 07/02/24 19:37 Impressions Chest X-Ray 07/02/24 19:24 Exam(s): XR CXR 1 VIEW EXAM: XR Chest, 1 View CLINICAL HISTORY: Reason for exam: sob. TECHNIQUE: Frontal view of the chest. COMPARISON: No relevant prior studies available. FINDINGS: Lungs: Patchy consolidation seen in the left lower zone. Pleural space: Unremarkable. No pneumothorax. Heart: Unremarkable. No cardiomegaly. Mediastinum: Unremarkable. Normal mediastinal contour. Bones/joints: Unremarkable. No acute fracture. IMPRESSION: Left lower lobe pneumonia Electronically signed by: Delfin Landin MD 07/02/24 20:32 PM Abdomen/Pelvis CT 07/02/24 20:12 Exam(s): CT ABDOMEN + PELVIS Without Contrast EXAM: CT Abdomen and Pelvis Without Intravenous Contrast CLINICAL HISTORY: Reason for exam: n/v/d, left abd pain. TECHNIQUE: Axial computed tomography images of the abdomen and pelvis without intravenous contrast. CTDI is 15.27 mGy and DLP is 676.51 mGy-cm. Automated exposure control was utilized for the study. A dose lowering technique was utilized adhering to the principles of ALARA. COMPARISON: 01/12/22 FINDINGS: Lung bases: Left lower lobe airspace opacity consistent with pneumonia. Mediastinum: Small sliding-type hiatal hernia. ABDOMEN: Liver: Unremarkable. Gallbladder and bile ducts: Gallbladder not visualized, presumed surgically absent. Prominent common bile duct, likely reservoir effect. Pancreas: Unremarkable. No ductal dilation. Spleen: Unremarkable. No splenomegaly. Adrenals: Unremarkable. No mass. Kidneys and ureters: Left nephrectomy. Right kidney and collecting system are unremarkable. Stomach and bowel: No bowel obstruction. Sigmoid diverticulosis. No mucosal thickening. PELVIS: Appendix: Appendix not identified. No secondary signs of appendicitis. Bladder: Decompressed urinary bladder, limiting evaluation. No stones. Reproductive: Hysterectomy. ABDOMEN and PELVIS: Intraperitoneal space: Unremarkable. No free air, significant free fluid, or fluid collection. Bones/joints: No acute fracture. No dislocation. Soft tissues: Unremarkable. Vasculature: Atherosclerosis of the aorta without aneurysm. Lymph nodes: Unremarkable. No enlarged lymph nodes. IMPRESSION: Left lower lobe airspace opacity consistent with pneumonia. Imaging follow-up to resolution recommended. No acute intra-abdominal findings. Electronically signed by: Gio Link M.D. 07/02/24 23:07 PM Code Status & VTE Plan Code Status Full code VTE Prophylaxis Plan VTE Prophylaxis will be ordered: Yes PG Care Time/CCT Total # of Minutes Spent Total Time Spent with Patient: Total time spent is greater than 50% in coordination of care (as documented) at patient's floor/unit and/or counseling patient: Coding Level of Care Code 65789 INT INP/OBS CARE 375MIN Diagnoses Pneumonia involving left lung J18.9 Sepsis A41.9 Acute kidney injury N17.9 Elevated troponin R74.8 Generalized weakness R53.1
--- NOTE | 2024-07-02 23:08 | CT Scan Report ---
Exam(s): CT ABDOMEN + PELVIS Without Contrast EXAM: CT Abdomen and Pelvis Without Intravenous Contrast CLINICAL HISTORY: Reason for exam: n/v/d, left abd pain. TECHNIQUE: Axial computed tomography images of the abdomen and pelvis without intravenous contrast. CTDI is 15.27 mGy and DLP is 676.51 mGy-cm. Automated exposure control was utilized for the study. A dose lowering technique was utilized adhering to the principles of ALARA. COMPARISON: 01/12/22 FINDINGS: Lung bases: Left lower lobe airspace opacity consistent with pneumonia. Mediastinum: Small sliding-type hiatal hernia. ABDOMEN: Liver: Unremarkable. Gallbladder and bile ducts: Gallbladder not visualized, presumed surgically absent. Prominent common bile duct, likely reservoir effect. Pancreas: Unremarkable. No ductal dilation. Spleen: Unremarkable. No splenomegaly. Adrenals: Unremarkable. No mass. Kidneys and ureters: Left nephrectomy. Right kidney and collecting system are unremarkable. Stomach and bowel: No bowel obstruction. Sigmoid diverticulosis. No mucosal thickening. PELVIS: Appendix: Appendix not identified. No secondary signs of appendicitis. Bladder: Decompressed urinary bladder, limiting evaluation. No stones. Reproductive: Hysterectomy. ABDOMEN and PELVIS: Intraperitoneal space: Unremarkable. No free air, significant free fluid, or fluid collection. Bones/joints: No acute fracture. No dislocation. Soft tissues: Unremarkable. Vasculature: Atherosclerosis of the aorta without aneurysm. Lymph nodes: Unremarkable. No enlarged lymph nodes. IMPRESSION: Left lower lobe airspace opacity consistent with pneumonia. Imaging follow-up to resolution recommended. No acute intra-abdominal findings. Electronically signed by: Gio Link M.D. 07/02/24 23:07 PM
[2024-07-03] MEDS: PIPERACILLIN/TAZOBACTAM 4.5 GM/100 ML BAG IV STA (00:29)
[2024-07-03] MEDS ORDERED: ALBUT/IPRATROP 3MG/0.5MG NEB 3 ML VIAL NEB PRN (01:45)
[2024-07-03] MEDS: SODIUM CHLORIDE 0.9% 1,000 ML IV ONE ×2 (02:24→03:51)
[2024-07-03 02:30] LABS: Adenovirus F 40/41 PCR Not Detected (NotDetected); Astrovirus PCR Not Detected (NotDetected); Campylobacter PCR Not Detected (NotDetected); Cryptosporidium PCR Not Detected (NotDetected); Cyclospora cayetanensis PCR Not Detected (NotDetected); Entamoeba histolytica PCR Not Detected (NotDetected); Enteroaggregative E.coli(EAEC) Not Detected (NotDetected); Enteropathogenic E.coli (EPEC) Not Detected (NotDetected); Enterotoxigenic E.coli (ETEC) Not Detected (NotDetected); Giardia lamblia PCR Not Detected (NotDetected); Norovirus GI/GII PCR Not Detected (NotDetected); Plesiomonas shigelloides PCR Not Detected (NotDetected); Rotavirus A PCR Not Detected (NotDetected); Salmonella PCR Not Detected (NotDetected); Sapovirus PCR Not Detected (NotDetected); Shiga-like Toxin E.coli (STEC) Not Detected (NotDetected); Shigella/Enteroinvasive E.coli Not Detected (NotDetected); Vibrio cholerae PCR Not Detected (NotDetected); Vibrio species PCR Not Detected (NotDetected); Yersinia enterocolitica PCR Not Detected (NotDetected)
[2024-07-03] MEDS: ONDANSETRON INJ 2 MG/ML 2 ML VIAL IV PRN (04:48)
[2024-07-03] MEDS: PIPERACILLIN/TAZOBACTAM 4.5 GM/100 ML BAG IV SCH (05:03)
[2024-07-03] MEDS: SODIUM CHLORIDE 0.9% 1,000 ML IV SCH (05:57)
[2024-07-03 06:40] LABS: Albumin Level 2.8 gm/dl (3.4-5.0); BUN Creatinine Ratio 20.7 (10-20); Calcium 7.4 mg/dl (8.6-10.3); Creatinine Clr Calc Pharmacy 26.1 ml/min; Magnesium 1.7 mg/dl (1.7-2.4); Phosphorus 3.7 mg/dl (2.5-4.9); Potassium 3.3 mmol/L (3.5-5.1)
[2024-07-03 06:41] LABS: Basophils # (auto) 0.01 K/uL (0.00-0.20); Basophils % (auto) 0.2 %; Hemoglobin 9.7 g/dl (12.0-16.0); Immature Granulocytes # (auto) 0.03 K/uL (0.01-0.20); Immature Granulocytes % (auto) 0.6 %; Lymphocytes # (auto) 0.46 K/uL (1.20-3.40); Lymphocytes % (auto) 9.3 %; Mean Corpuscular Hemoglobin 30.6 pg (25.0-34.0); Mean Corpuscular Hgb Conc 32.3 g/dL (32.0-36.0); Mean Corpuscular Volume 94.6 fL (80.0-100.0); Mean Platelet Volume 10.3 fL (9.4-12.4); Monocytes # (auto) 0.17 K/uL (0.11-0.59); Monocytes % (auto) 3.4 %; Neutrophils # (auto) 4.28 K/uL (1.40-6.50); Neutrophils % (auto) 86.5 %; Platelet Count 159 K/uL (130-400); RDW Coefficient of Variation 13.5 % (11.5-14.5); RDW Standard Deviation 46.8 fL (36.4-46.3); Red Blood Count 3.17 M/uL (4.20-5.40); White Blood Count 4.95 K/ul (4.8-10.8)
--- OUTSIDE RECORDS SUMMARY | 2024-07-03 08:10 | External Medical Summary | Continuity of Care Document ---
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 02/27/2017Chest x-ray| Service Date: 02/25/2017Cataract surgery| Service Date: 10/07/2015Cataract surgery| Service Date: 09/14/2015Colonoscopy| Service Date: 09/05/2015Colonoscopy| Service Date: 04/1999Cardiac catheterisation| Service Date: 1997Right elbow SurgeryUlnar nerveArthroscopyNerve RemovalOophorectomyAppendectomy Cholecystectomy; D&C - Dilatation and curettage Hysterectomy Left Knee Scope left kidney removal; appendectomy; TAVIA for fibroid with bleeding; Knee; elbow;Mammogram Medications alendronate(Fosamax 70 mg oral tablet), 70 mg= 1 tab, PO, q7days, 11 refills amLODIPine(amLODIPine 5 mg oral tablet), See Instructions, 11 refills anastrozole(anastrozole 1 mg oral tablet), See Instructions atenolol(atenolol 50 mg oral tablet), See Instructions, 3 refills buPROPion(BuPROPion (Eqv-Wellbutrin SR) 150 mg/12 hours oral tablet, extended release), 1 tab, PO, bid cilostazol(Pletal 50 mg oral tablet), 50 mg= 1 tab, PO, Daily, 3 refills clopidogrel(clopidogrel 75 mg oral tablet), See Instructions, 3 refills losartan(losartan 100 mg oral tablet), See Instructions, 3 refills nitroglycerin(nitroglycerin 0.4 mg sublingual tablet), 0.4 mg= 1 tab, SL, q5min, PRN, 1 refills omega-3 polyunsaturated fatty acids(Lovaza 1000 mg oral capsule), 2000 mg= 2 cap, PO, bid, 11 refills pantoprazole(pantoprazole 40 mg oral delayed release tablet), 40 mg= 1 tab, PO, Daily, 3 refills rosuvastatin(rosuvastatin 40 mg oral tablet), 40 mg= 1 tab, PO, qhs, 3 refills Allergies NKA Social History Smoking Status Current every day light smoker Alcohol - Denies Alcohol Use Employment/School Status:Employed 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 Diabetes: Unknown. Heart disease: Unknown. Lupus..: Daughter. Rheumatoid Arthritis: Daughter. Stomach: Mother. Stroke: Father. Thyroid cancer: Daughter. Health Status Family Member(s) Immunizations Vaccine Date Status SARS-CoV-2 (COVID-19) mRNA-1273 vaccine 12/30/2020 Recorded Comments : 2021-03-30: Historical information-source unspecified SARS-CoV-2 (COVID-19) mRNA-1273 vaccine 12/02/2020 Recorded Comments : 2021-03-30: Historical information-source unspecified influenza virus vaccine, inactivated 06/20/2020 Recorded pneumococcal 23-valent vaccine 06/15/2019 Given influenza virus vaccine, H5N1, inactive 05/26/2019 Recorded pneumococcal 13-valent vaccine 01/06/2018 Given zoster vaccine, inactivated 01/06/2018 Given zoster vaccine live 08/02/2015 Given tetanus toxoids-diphtheria, Td (Adult) 05/04/2009 Recorded Recommendations Health Maintenance Pending(in the next year) OverDue Medicare Annual Wellness Visit due03/30/22and every 1year Adult Influenza Vaccine due02/23/24and every 1year Due Adult COVID-19 Vaccination due05/26/24Unknown Frequency Adult Social Determinants of Health Screening due05/26/24Unknown Frequency Adult Tdap/Td Vaccine due05/26/24Unknown Frequency Diabetic Eye Exam due05/26/24Unknown Frequency Falls Plan of Care due05/26/24Unknown Frequency Hepatitis C Screening due05/26/24One-time only Shingles Vaccine due05/26/24One-time only Due In Future Diabetes Management A1c not due until04/14/25and every 366day Satisfied(in the past 1 year) Satisfied Body Mass Index on10/15/23.Satisfied by LUIS CARLOS Desir Bobbi Breast Cancer Screening on03/25/24.Satisfied by KYE Zapata Lynnae Diabetes Management A1c on04/13/24.Satisfied by Contributor_system, [email or web address] Lipid Screening on04/13/24.Satisfied by Contributor_system, [email or web address] Electronic Signature on File Electronically Reviewed/Signed by: Glory Barbosa PA-C,JAMAR Author Signature Dt/Tm::04 PM Physician Music Theory Teacher [facility] [address] [address] JAW Patient Care team information Care Team Personnel Name: MD Javid, Christoph Silva Position: Physician - Family Med Member Role: Lifetime Relationship Address: [address] [place] [address] [place] Name: CELESTE Cheema Tara Position: Nurse Pract - Family Med Member Role: Lifetime Relationship Address: [address] [place] [address] [place] Name: Alberto Loo MD, Valdemar Akers Position: Provider - Terminated Member Role: Lifetime Relationship Address: [address] [place] [address] [place] Name: EMMA Lauren Lynn Position: Physician Music Theory Teacher Exempt - Vasc Surg Member Role: Lifetime Relationship Address: [address] [place] [address] [place] Name: MD Reuben, Adriana Position: Physician - Pathologist Member Role: Lifetime Relationship Address: [address] [place] [address] [place] Name: EMMA Barbosa Jessica A Position: Physician Asst Exmpt - Family Med Member Role: Primary Care Provider Address: [address] [place] [address] Care Team Related Persons Name: NADYA ORO Name: NADYA ORO"
--- OUTSIDE RECORDS SUMMARY | 2024-07-03 08:10 | External Medical Summary | Continuity of Care Document ---
Author Name Unknown Organization [facility] [address] [place], [place] [id number] Care Team Providers Care Showcase Maker Name Role Phone Yanet Cheema Primary Care Physician [phone] [id number] 04/13/24 - 04/13/24 [facility] [place], [place] [phone] Encounter Diagnosis Type 2 diabetes mellitus without complications(Final) - Lipoprotein deficiency(Final) - Discharge Disposition: Home or Self Care Attending Physician: CELESTE Cheema Tara Referring Physician: CELESTE Cheema Tara Allergies, Adverse Reactions, Alerts No Known Allergies Immunizations Given and Recorded Vaccine Date Status [...] 1 tablet by mouth once daily, Pharmacy: [facility] 2229 Start Date: 10/15/23 Status: Ordered anastrozole 1 mg oral tablet See Instructions, Disp# 90 tab, Refills: 0, Take 1 tablet by mouth once daily, Pharmacy: [facility] 2229 Start Date: 02/07/21 Status: Ordered atenolol 50 mg oral tablet Start: 06/24/23 9:04:00 AM EDT, See Instructions, Disp# 90 tab, Refills: 3, Take 1 tablet by mouth once daily, Pharmacy: [facility] 2229 Start Date: 06/24/23 Status: Ordered BuPROPion (Eqv-Wellbutrin SR) 150 mg/12 hours oral tablet, extended release Start: 02/10/24 9:56:00 AM EDT, 1 tab, PO, bid, Disp# 180 tab, Refills: 0, Pharmacy: [facility] 2229 Start Date: 02/10/24 Status: Ordered clopidogrel 75 mg oral tablet Start: 06/03/23 1:45:00 PM EDT, See Instructions, Disp# 90 tab, Refills: 3, TAKE 1 TABLET BY MOUTH ONCE DAILY, Pharmacy: [facility] 2229 Start Date: 06/03/23 Status: Ordered losartan 100 mg oral tablet Start: 06/03/23 1:45:00 PM EDT, See Instructions, Disp# 90 tab, Refills: 3, Take 1 tablet by mouth once daily, Pharmacy: [facility] 2229 Start Date: 06/03/23 Status: Ordered Lovaza 1000 mg oral capsule Start: 07/15/18 5:21:00 PM EST, 2 cap, PO, bid, Disp# 120 cap, Refills: 11, Pharmacy: [facility] 2229 Start Date: 07/15/18 Status: Ordered nitroglycerin 0.4 mg sublingual tablet Start: 10/15/23 8:09:00 PM EST, 1 tab, SL, q5min, Disp# 10 tab, Refills: 1, PRN: as needed for chestpain, Pharmacy: [facility] 2229 Start Date: 10/15/23 Status: Ordered pantoprazole 40 mg oral delayed release tablet Start: 02/06/24 11:14:00 AM EDT, 1 tab, PO, Daily, Disp# 90 tab, Refills: 3, Pharmacy: [facility] 2230 Start Date: 02/06/24 Status: Ordered Pletal 50 mg oral tablet Start: 02/06/24 11:11:00 AM EDT, 1 tab, PO, Daily, Disp# 180 tab, Refills: 3, other Start Date: 02/06/24 Status: Ordered rosuvastatin 40 mg oral tablet Start: 02/07/24 9:29:00 AM EDT, 1 tab, PO, qhs, Disp# 90 tab, Refills: 3, Note to Pharmacy: cancel 10mg tablet., Pharmacy: [facility] [id number] Start Date: 02/07/24 Status: Ordered Problem List Condition Confirmation Course Effective Dates Status H ealth Status Informant ANXIETY Confirmed 12/01/10 Active Atherosclerosis Confirmed Active Unspecified atherosclerosis of [place] arteries of extremities, unspecified extremity Confirmed Active Carotid stenosis, bilateral Confirmed Active Carotid stenosis Confirmed Active Celiac sprue 1 Confirmed Active Chronic kidney disease stage 3A (disorder) Confirmed Active 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 sees Dr. Rice 2EGD in 05/2012: hiatal hernia 3Echo done 1997 4Mild Procedures Procedure Date Related Diagnosis Body Site [...] Cardiac catheterisation 1997 Completed Appendectomy Completed Arthroscopy 24 Completed Cholecystectomy; Complete d D&C - Dilatation [...] in 10 years. 23diagnostic only. done at [facility] 24Right knee 25expected posturgical changes status post bilat lumpectomies, with no mammographic evidence of malignancy in either breast . recommend bilateral diagnostic tomosynthesis mammograms in 6 months to revaluate posttreatment changes -Right wrist 27Right elbow surgery 28Right Trans Results Laboratory List Name Date Hemoglobin A1C (HEMOGLOBIN, A1C) 04/13/24 Lipid Profile (LIPOPROTEINS) 04/13/24 Most recent to oldest [Reference Range]: 1 Estimated Average Glucose 151 mg/dL 1 (04/13/24 8:20 AM) Non-HDL 74 mg/dL 2 (04/13/24 8:20 AM) Chol/HDL 3 (04/13/24 8:20 AM) Chol [125-200 mg/dL] 113 mg/dL *LOW* (04/13/24 8:20 AM) HbA1c [4.0-6.0 %] 6.9 % *HI* (04/13/24 8:20 AM) HDL [>35 mg/dL] 39 mg/dL (04/13/24 8:20 AM) LDL Chol, Calculated [50-130 mg/dL] 36 m g/dL *LOW* (04/13/24 8:20 AM) TG [<200 mg/dL] 189 mg/dL (04/13/24 8:20 AM) 1Result Comment: Testing Performed By: Dept of Pathology [facility] [address], [address], [place] [address] 2Result Comment: Testing Performed By: Dept of Pathology [facility] [address], [address], [place] [address] Social History Social History Type Response Tobacco Former smoker, Cigar ettes, 20 per day. 30 year(s). Total pack years: 30. Stopped age 66 Years. Smoking Status Current every day li ght smoker Sex Female Sex Representation Female (finding) Patient Care team information Care Team Personnel Name: MD Javid, Christoph Silva Position: Physician - Family Med Member Role: Lifetime Relationship Address: [address] [facility] [address] [place] [address] [place] Name: CELESTE Cheema Tara Position: Nurse Pract - Family Med Member Role: Lifetime Relationship Address: [address] [place] [address] [place] Name: Alberto Loo MD, Valdemar Akers Position: Provider - Terminated Member Role: Lifetime Relationship Address: [address] [place] [address] [place] Name: EMMA Lauren Lynn Position: Physician Night Worker Exempt - Vasc Surg Member Role: Lifetime Relationship Address: [address] [facility] 1 [place] [address] Name: MD Reuben, Adriana Position: Physician - Pathologist Member Role: Lifetime Relationship Address: [address] [place] [address] Care Team Related Persons Name: NADYA ORO Name: NADYA ORO
--- OUTSIDE RECORDS SUMMARY | 2024-07-03 08:11 | External Medical Summary | Continuity of Care Document ---
Author Name Unknown Organization [facility] [address] [facility] [address] Address [address] [place], [place] [id number] Care Team Providers Care Financial Supervisor Name Role Phone Yanet Cheema Primary Care Physician [phone] 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) - Discharge Disposition: Home or Self Care Attending Physician: MD Tejeda Aderonke Referring Physician: MD Tejeda Aderonke Allergies, Adverse Reactions, Alerts No Known Allergies [...] 1 tablet by mouth once daily, Pharmacy: [facility] [id number] Start Date: 10/15/23 Status: Ordered anastrozole 1 mg oral tablet See Instructions, Disp# 90 tab, Refills: 0, Take 1 tablet by mouth once daily, Pharmacy: [facility] 2229 Start Date: 02/07/21 Status: Ordered atenolol 50 mg oral tablet Start: 06/24/23 9:04:00 AM EDT, See Instructions, Disp# 90 tab, Refills: 3, Take 1 tablet by mouth once daily, Pharmacy: [facility] 2229 Start Date: 06/24/23 Status: Ordered BuPROPion (Eqv-Wellbutrin SR) 150 mg/12 hours oral tablet, extended release Start: 02/10/24 9:56:00 AM EDT, 1 tab, PO, bid, Disp# 180 tab, Refills: 0, Pharmacy: [facility] 2229 Start Date: 02/10/24 Status: Ordered clopidogrel 75 mg oral tablet Start: 06/03/23 1:45:00 PM EDT, See Instructions, Disp# 90 tab, Refills: 3, TAKE 1 TABLET BY MOUTH ONCE DAILY, Pharmacy: [facility] 2229 Start Date: 06/03/23 Status: Ordered losartan 100 mg oral tablet Start: 06/03/23 1:45:00 PM EDT, See Instructions, Disp# 90 tab, Refills: 3, Take 1 tablet by mouth once daily, Pharmacy: [facility] 2229 Start Date: 06/03/23 Status: Ordered Lovaza 1000 mg oral capsule Start: 07/15/18 5:21:00 PM EST, 2 cap, PO, bid, Disp# 120 cap, Refills: 11, Pharmacy: [facility] 2229 Start Date: 07/15/18 Status: Ordered nitroglycerin 0.4 mg sublingual tablet Start: 10/15/23 8:09:00 PM EST, 1 tab, SL, q5min, Disp# 10 tab, Refills: 1, PRN: as needed for chestpain, Pharmacy: [facility] 2229 Start Date: 10/15/23 Status: Ordered pantoprazole 40 mg oral delayed release tablet Start: 02/06/24 11:14:00 AM EDT, 1 tab, PO, Daily, Disp# 90 tab, Refills: 3, Pharmacy: [facility] 2229 Start Date: 02/06/24 Status: Ordered Pletal 50 mg oral tablet Start: 02/06/24 11:11:00 AM EDT, 1 tab, PO, Daily, Disp# 180 tab, Refills: 3, other Start Date: 02/06/24 Status: Ordered rosuvastatin 40 mg oral tablet Start: 02/07/24 9:29:00 AM EDT, 1 tab, PO, qhs, Disp# 90 tab, Refills: 3, Note to Pharmacy: cancel 10mg tablet., Pharmacy: [facility] [id number] Start Date: 02/07/24 Status: Ordered Problem List Condition Confirmation Course Effective Dates Status H ealth Status Informant ANXIETY Confirmed 12/01/10 Active Atherosclerosis Confirmed Active Unspecified atherosclerosis of [place] arteries of extremities, unspecified extremity Confirmed Active Carotid stenosis, bilateral Confirmed Active Carotid stenosis Confirmed Active Celiac sprue 1 Confirmed Active Chronic kidney disease stage 3A (disorder) Confirmed Active CAD in [place] artery Confirmed Active Diverticulosis Confirmed Active Breast [...] in 10 years. 23diagnostic only. done at [facility] 24Right knee 25expected posturgical changes status post bilat lumpectomies, with no mammographic evidence of malignancy in either breast . recommend bilateral diagnostic tomosynthesis mammograms in 6 months to revaluate posttreatment changes -Right wrist 27Right elbow surgery 28Right Trans Results Laboratory List Name Date Complete Blood Count w Differential (CBC ,DIFFH) 04/01/24 Comprehensive Metabolic Panel (COMP META B PANEL) 04/01/24 Lactate Dehydrogenase (LD) 04/01/24 Request to FAX Report (First Location) ( ACC NO TO BE FAXED) 04/01/24 Most recent to oldest [Reference Range]: 1 eGFR CKD-EPI [>60 mL/min/1.73 m2] 50 mL/ min/1.73 m2 1 *LOW* (04/01/24 12:12 PM) Estimated CrCl 40.25 mL/min (04/01/24 1:10 PM) Phone No [phone] (04/01/24 12:12 PM) Faxed on: 04/02/24 10:05 (04/01/24 12:12 PM) MPV [9.0-12.2 fL] 9.5 fL (04/01/24 12:12 PM) Immature Gran% 0.2 % (04/01/24 12:12 PM) Neut% 62.5 % (04/01/24 12:12 PM) Lymph% 25.0 % (04/01/24 12:12 PM) Bucks% 8.4 % (04/01/24 12:12 PM) Baso% 0.9 % (04/01/24 12:12 PM) Eos% 3.0 % (04/01/24 12:12 PM) Immat Gran, Abs [0-0.4 K/uL] 0.01 K/uL (04/01/24 12:12 PM) Neut, Abs [2.0-7.7 K/uL] 2.90 K/uL (04/01/24 12:12 PM) Lymph, Abs [1.0-3.4 K/uL] 1.16 K/uL (04/01/24 12:12 PM) Bucks, Abs [0-1.0 K/uL] 0.39 K/uL (04/01/24 12:12 PM) Baso, Abs [0-0.1 K/uL] 0.04 K/uL (04/01/24 12:12 PM) Eos, Abs [0-0.5 K/uL] 0.14 K/uL (04/01/24 12:12 PM) Type of Diff: AUTO *Unknown* (04/01/24 1212 PM) RDW [11.5-14.2 %] 13.6 % (04/01/24 12:12 PM) Anion Gap [5-14 mmol/L] 6 mmol/L (04/01/24 12:12 PM) Alb [3.5-5.0 g/dL] 4.2 g/dL (04/01/24 12:12 PM) Alk Phos [38-126 unit/L] 92 unit/L (04/01/24 12:12 PM) ALT [<35 unit/L] 14 unit/L (04/01/24 12:12 PM) AST [15-46 unit/L] 24 unit/L (04/01/24 12:12 PM) BUN [7-20 mg/dL] 15 mg/dL (04/01/24 12:12 PM) Ca [8.4-10.2 mg/dL] 10.0 mg/dL (04/01/24 12:12 PM) Cl- [96-107 mmol/L] 111 mmol/L *HI* (04/01/24 1212 PM) HCO3 [22-30 mmol/L] 23 mmol/L (04/01/24 12:12 PM) Cret [0.60-1.00 mg/dL] 1.16 mg/dL *HI* (04/01/24 1212 PM) Glu [74-106 mg/dL] 81 mg/dL (04/01/24 12:12 PM) Hct [35-44 %] 40.2 % (04/01/24 12:12 PM) Hgb [11.7-15.0 g/dL] 12.9 g/dL (04/01/24 12:12 PM) K [3.5-5.1 mmol/L] 4.5 mmol/L (04/01/24 12:12 PM) LDH [120-246 unit/L] 184 unit/L 3 (04/01/24 12:12 PM) MCH [28-33 pg] 31.0 pg (04/01/24 12:12 PM) MCHC [32-36 g/dL] 32.1 g/dL (04/01/24 12:12 PM) MCV [81-96 fL] 96.6 fL *HI* (04/01/24 12:12 PM) Na [137-145 mmol/L] 140 mmol/L (04/01/24 12:12 PM) Plts [150-350 K/uL] 264 K/uL (04/01/24 12:12 PM) RBC [3.90-5.00 M/uL] 4.16 M/uL (04/01/24 12:12 PM) T Bili [0.2-1.3 mg/dL] 0.5 mg/dL (04/01/24 12:12 PM) Prot [6.3-8.2 g/dL] 7.4 g/dL (04/01/24 12:12 PM) WBC [4.0-10.4 K/uL] 4.64 K/uL (04/01/24 12:12 PM) 1Result Comment: Testing Performed By: Dept of Pathology [facility] [address], [address] [place], [place] [address] 2Result Comment: Testing Performed By: Dept of Pathology [facility] [address], [address], [place] [address] 3Result Comment: Testing Performed By: Dept of Pathology [facility] [address], [address] [facility], [place] [address] Social History Social History Type Response Tobacco Former smoker, Cigar ettes, 20 per day. 30 year(s). Total pack years: 30. Stopped age 66 Years. Smoking Status [facility] Sex Female Sex Representation Female (finding) Patient Care team information Care Team Personnel Name: MD Javid, Christoph Silva Position: Physician - Family Med Member Role: Lifetime Relationship Address: [address] [facility] [address] [place] [address] [place] Name: CELESTE Cheema Tara Position: Nurse Pract - Family Med Member Role: Lifetime Relationship Address: [address] [place] [address] [place] Name: Alberto Loo MD, Valdemar Akers Position: Provider - Terminated Member Role: Lifetime Relationship Address: [address] [place] [address] [place] Name: EMMA Lauren Lynn Position: Physician Organic Section Technical Lead Exempt - Vasc Surg Member Role: Lifetime Relationship Address: [address] [facility] 1 [place] [address] Name: MD Reuben, Adriana Position: Physician - Pathologist Member Role: Lifetime Relationship Address: [address] [place] [address] [place] Care Team Related Persons Name: NADYA ORO Name: NADYA ORO
[2024-07-03] MEDS ORDERED: buPROPion XL 150 MG TABCR PO SCH (09:00)
[2024-07-03] MEDS ORDERED: INFLUENZA VACC TS2024-25(65y+)/PF (IIV3) 0.5mL Syr IM ONE (09:00)
[2024-07-03] MEDS: buPROPion SR 150 MG TABCR PO SCH (09:08)
[2024-07-03] MEDS: CLOPIDOGREL BISULFATE 75 MG TAB PO SCH (09:08)
[2024-07-03] MEDS: HEPARIN SOD 5,000 UNIT/0.5 ML VIAL SQ SCH (09:09)
[2024-07-03] MEDS: cilostazoL 100 MG TAB PO SCH (09:09)
[2024-07-03] MEDS: ANASTROZOLE 1 MG TAB PO SCH (09:09)
[2024-07-03] MEDS: PANTOprazole 40 MG/10 ML SYR IV SCH (09:09)
[2024-07-03] MEDS: POTASSIUM CHLORIDE CRTAB 20 MEQ TABCR PO SCH (09:30)
--- NOTE | 2024-07-03 09:37 | Hospitalist Progress Note ---
Date of Service July 03, 2024 Assessment & Plan (1) Sepsis: Plan: Sepsis due to pneumonia involving left lung-concern for gram negative pneumonia or aspiration pneumonia Patient initially presented with symptoms of nausea and vomiting, prompting a CT scan of abdomen pelvis, which revealed a left lower lobe infiltrate, and was otherwise normal. Admit on Zosyn 4.5 g IV every 8 hours, DuoNebs every 2 hours as needed, acetaminophen 1 g IV every 8 hours as needed, and pantoprazole 40 mg IV daily MRSA swab ordered-negative Sputum Gram stain and culture ordered [employer] testing negative diarrhea stool pcr negative, c diff pending (2) Acute kidney injury: Plan: Patient did have acute kidney injury due to nausea and vomiting, with decreased oral intake. Creatinine was 1.55 with base 1.04 From the ED patient received LR 1 L bolus, followed by NSS 1 L bolus. Maintenance fluids NSS at 80 mL/h x 1 L, and repeat laboratories every morning (3) Generalized weakness: Plan: Pt has a history of breast cancer, did have treatment and XRT Plan hypokalemia, replete and check magnesium Admission and Anticipated Discharge Date Admission Date: July 02, 2024 Subjective diarrhea has lessened, still some mild abdominal pain, not eating well Physical Exam Physical Exam: awake and alert, mild distress abd is soft and non tender, no rebound Results & Data Results & Data Vital Signs (Past 12 Hours) Vital Signs Temp Pulse Pulse Resp BP BP Pulse Ox 07/03/24 07:46 98.1 F 66 20 101/51 L 95 07/03/24 07:35 60 07/03/24 03:30 90/33 L 07/03/24 02:45 61 07/03/24 01:57 97.9 F 59 L 18 89/47 L 94 07/03/24 01:49 07/03/24 01:46 97.9 F 60 20 88/44 L 90 07/02/24 23:49 60 07/02/24 23:00 61 23 92/48 L 96 07/02/24 22:51 62 18 96 07/02/24 22:48 63 20 95 07/02/24 22:39 62 21 97 07/02/24 22:27 59 L 23 97 07/02/24 22:00 65 24 89/45 L 96 07/02/24 21:45 67 24 94 07/02/24 21:39 67 24 O2 Del Method O2 Flow Rate 07/03/24 07:46 Room Air 07/03/24 07:35 07/03/24 03:30 07/03/24 02:45 07/03/24 01:57 Room Air 07/03/24 01:49 Room Air 07/03/24 01:46 Room Air 07/02/24 23:49 07/02/24 23:00 Nasal Cannula 2 07/02/24 22:51 Nasal Cannula 2 07/02/24 22:48 Nasal Cannula 2 07/02/24 22:39 Nasal Cannula 2 07/02/24 22:27 Nasal Cannula 2 07/02/24 22:00 Nasal Cannula 2 07/02/24 21:45 Nasal Cannula 2 07/02/24 21:39 Laboratory Results review cbc ordered c diff testing review chemistry augmented hypokalemia PG Care Time/CCT Total # of Minutes Spent Total Time Spent with Patient: Total time spent is greater than 50% in coordination of care (as documented) at patient's floor/unit and/or counseling patient: Coding Level of Care Code 20330 SUB INP/OBS CARE 3/50MIN Diagnoses Sepsis A41.9 Acute kidney injury N17.9 Generalized weakness R53.1
[2024-07-03] MEDS: CHOLESTYRAMINE LIGHT 4 GM PKT PO SCH (10:27)
--- NOTE | 2024-07-03 13:28 | Electrocardiogram Report ---
Test Reason : Blood Pressure : */* mmHG Vent. Rate : 82 BPM Atrial Rate : 82 BPM P-R Int : 184 ms QRS Dur : 140 ms QT Int : 398 ms P-R-T Axes : 40 -32 130 degrees QTcB Int : 464 ms Normal sinus rhythm Left axis deviation Left bundle branch block Abnormal ECG When compared with ECG of 27-Feb-2017 16:21, [place] interval has decreased QRS axis Shifted left T wave inversion no longer evident in Inferior leads T wave inversion no longer evident in Anterior leads Confirmed by Kayode Taylor ([id number]) on 07/03/2024 1:28:22 PM Referred By: REFERRED SELF Confirmed By: Kayode Taylor
--- NOTE | 2024-07-03 13:40 | Electrocardiogram Report ---
Test Reason : Blood Pressure : */* mmHG Vent. Rate : 59 BPM Atrial Rate : 59 BPM P-R Int : 202 ms QRS Dur : 146 ms QT Int : 502 ms P-R-T Axes : 54 2 148 degrees QTcB Int : 496 ms Sinus bradycardia Left bundle branch block Abnormal ECG When compared with ECG of 02-Jul-2024 18:52, (unconfirmed) QRS axis Shifted right Nonspecific T wave abnormality now evident in Inferior leads T wave inversion less evident in Lateral leads Confirmed by Kayode Taylor ([id number] on 07/03/2024 1:40:16 PM Referred By: REFERRED SELF Confirmed By: Kayode Taylor
[2024-07-03] MEDS: ACETAMINOPHEN 1000 MG/100 ML IV IV PRN (15:45)
[2024-07-03] MEDS: NICOTINE 21 MG/24 HR TDSY TD SCH (16:38)
[2024-07-03] MEDS: CHERRY SYRUP 5 ML UDP PO SCH (17:57)
[2024-07-03] MEDS: VANCOMYCIN HCL 125 MG/2.5ML SOLN PO SCH (17:58)
[2024-07-03 23:51] LABS: Hematocrit (blood only) 30.4 % (37.0-47.0)
[2024-07-04 06:17] LABS: Basophils # (auto) 0.01 K/uL (0.00-0.20); Basophils % (auto) 0.3 %; Hematocrit (blood only) 26.2 % (37.0-47.0); Hemoglobin 8.8 g/dl (12.0-16.0); Immature Granulocytes # (auto) 0.04 K/uL (0.01-0.20); Immature Granulocytes % (auto) 1.1 %; Lymphocytes % (auto) 10.6 %; Mean Corpuscular Hemoglobin 30.4 pg (25.0-34.0); Mean Corpuscular Hgb Conc 33.6 g/dL (32.0-36.0); Mean Corpuscular Volume 90.7 fL (80.0-100.0); Mean Platelet Volume 10.1 fL (9.4-12.4); Monocytes # (auto) 0.24 K/uL (0.11-0.59); Monocytes % (auto) 6.3 %; Neutrophils % (auto) 81.7 %; Platelet Count 154 K/uL (130-400); RDW Coefficient of Variation 13.8 % (11.5-14.5); RDW Standard Deviation 46.5 fL (36.4-46.3); Red Blood Count 2.89 M/uL (4.20-5.40); White Blood Count 3.79 K/ul (4.8-10.8)
[2024-07-04 06:58] LABS: Albumin Level 2.6 gm/dl (3.4-5.0); Calcium 7.2 mg/dl (8.6-10.3); Creatinine Clr Calc Pharmacy 24.3 ml/min; Magnesium 1.8 mg/dl (1.7-2.4); Phosphorus 2.5 mg/dl (2.5-4.9); Potassium 3.3 mmol/L (3.5-5.1)
--- NOTE | 2024-07-04 08:09 | Hospitalist Progress Note ---
Date of Service July 04, 2024 Assessment & Plan (1) Sepsis: Plan: Sepsis due to pneumonia involving left lung-concern for gram negative pneumonia or aspiration pneumonia Patient initially presented with symptoms of nausea and vomiting, prompting a CT scan of abdomen pelvis, which revealed a left lower lobe infiltrate, and was otherwise normal. Admit on Zosyn 4.5 g IV every 8 hours, DuoNebs every 2 hours as needed, acetaminophen 1 g IV every 8 hours as needed, and pantoprazole 40 mg IV daily MRSA swab ordered-negative sputum not collected [employer] testing negative, covid and repeat covid negative( repeat as family has tested positive in last week) diarrhea stool pcr negative, c diff negative (2) Acute kidney injury: Plan: Patient did have acute kidney injury due to nausea and vomiting, with decreased oral intake. Creatinine was 1.55 with base 1.04 still with ron, additional fluids ordered, has non anion gap acidosis likley from diarrhea (3) Generalized weakness: Plan: Pt has a history of breast cancer, did have treatment and XRT Plan hypokalemia, repletion continues and magnesium is replete Admission and Anticipated Discharge Date Admission Date: July 02, 2024 Subjective diarrhea has lessened, still some mild abdominal pain, not eating well overall states feels a little better Physical Exam Physical Exam: awake and alert, mild distress abd is soft and non tender, no rebound, no ruq pain if any is epigastric Results & Data Results & Data Vital Signs (Past 12 Hours) Vital Signs Temp Pulse Pulse Resp BP Pulse Ox O2 Del Method 07/04/24 07:30 66 07/04/24 02:10 99.9 F H 79 18 115/56 L 94 Room Air 07/04/24 01:45 98.6 F 67 18 94/50 L 93 Room Air 07/03/24 22:46 98.6 F 67 18 94/50 L 93 Room Air 07/03/24 22:44 68 07/03/24 20:32 Room Air Laboratory Results review cbc review chemistry, augment potassium PG Care Time/CCT Total # of Minutes Spent Total Time Spent with Patient: Total time spent is greater than 50% in coordination of care (as documented) at patient's floor/unit and/or counseling patient: Coding Level of Care Code 01393 SUB INP/OBS CARE 3/50MIN Diagnoses Sepsis A41.9 Acute kidney injury N17.9 Generalized weakness R53.1
[2024-07-04] MEDS: SODIUM CHLORIDE 0.9% 1,000 ML IV SCH (08:26)
[2024-07-04] MEDS: LOPERAMIDE HCL 2 MG CAP PO PRN (11:53)
[2024-07-04] MEDS: AZITHROMYCIN 500 MG in DEXTROSE 5% 250 ML IV SCH (17:17)
[2024-07-04 17:20] LABS: Appearance Urine Clear (Clear); Bacteria Urine Automated None Seen (None Seen); Bilirubin Urine Negative (Negative); Blood Urine 1+ (Negative); Cast Urine Automated 0-2 /lpf (0-2); Color Urine Yellow; Glucose Urine UA Negative (Negative); Ketones Urine Negative (Negative); Leukocyte Esterase Urine Trace (Negative); Nitrite Urine Negative (Negative); Protein Urine 2+ (Negative); Specific Gravity Urine 1.016 (1.000-1.030); Urobilinogen Urine Negative (Negative); WBC Urine Automated 0-5 /hpf (0-5); pH Urine 5.5 (4.5-7.5)
[2024-07-04] MEDS: POTASSIUM CHLORIDE CRTAB 20 MEQ TABCR PO SCH (20:18)
[2024-07-04] MEDS: FAMOTIDINE 20 MG TAB PO SCH (20:19)
[2024-07-04] MEDS: CEFEPIME 1000MG 1,000 MG/10 ML SYR IV SCH (22:19)
[2024-07-05 06:13] LABS: Basophils # (auto) 0.01 K/uL (0.00-0.20); Basophils % (auto) 0.2 %; Hematocrit (blood only) 27.4 % (37.0-47.0); Hemoglobin 9.4 g/dl (12.0-16.0); Immature Granulocytes # (auto) 0.06 K/uL (0.01-0.20); Immature Granulocytes % (auto) 1.3 %; Lymphocytes # (auto) 0.35 K/uL (1.20-3.40); Lymphocytes % (auto) 7.6 %; Mean Corpuscular Hemoglobin 30.5 pg (25.0-34.0); Mean Corpuscular Hgb Conc 34.3 g/dL (32.0-36.0); Monocytes # (auto) 0.28 K/uL (0.11-0.59); Monocytes % (auto) 6.1 %; Neutrophils # (auto) 3.88 K/uL (1.40-6.50); Neutrophils % (auto) 84.8 %; Platelet Count 198 K/uL (130-400); RDW Coefficient of Variation 14.3 % (11.5-14.5); RDW Standard Deviation 46.3 fL (36.4-46.3); Red Blood Count 3.08 M/uL (4.20-5.40); White Blood Count 4.58 K/ul (4.8-10.8)
[2024-07-05 06:49] LABS: Potassium 3.6 mmol/L (3.5-5.1)
[2024-07-05 06:50] LABS: Albumin Level 2.7 gm/dl (3.4-5.0); BUN Creatinine Ratio 13.6 (10-20); Calcium 7.9 mg/dl (8.6-10.3); Creatinine Clr Calc Pharmacy 36.3 ml/min; Magnesium 1.6 mg/dl (1.7-2.4); Phosphorus 1.4 mg/dl (2.5-4.9)
[2024-07-05] MEDS ORDERED: POTASSIUM PHOS 3 MMOL/1 ML INFUSION IV STA (06:54)
[2024-07-05] MEDS: POTASSIUM PHOSPHATE 21 MMOL in DEXTROSE 5% 500 ML IV ONE (07:38)
[2024-07-05] MEDS: MAGNESIUM SULFATE / D5W 1 GM/100 ML BAG IV SCH (07:38)
[2024-07-05] MEDS: buPROPion SR 100 MG TABCR PO SCH (07:49)
[2024-07-05] MEDS: CEFEPIME 2000MG 2,000 MG/20 ML SYR IV SCH (11:11)
--- NOTE | 2024-07-05 15:41 | Hospitalist Progress Note ---
Date of Service July 05, 2024 Assessment & Plan (1) Sepsis: Plan: Sepsis due to pneumonia involving left lung-concern for gram negative pneumonia or aspiration pneumonia Patient initially presented with symptoms of nausea and vomiting, prompting a CT scan of abdomen pelvis, which revealed a left lower lobe infiltrate, and was otherwise normal. Zosyn was changed to cefepime and azithromycin due to afternoon fevers so far fevers have resolved may need to go home on atypical coverage can consider levofloxacin DuoNebs every 2 hours as needed, acetaminophen 1 g IV every 8 hours as needed, and pantoprazole 40 mg IV daily MRSA swab ordered-negative sputum not collected [employer] testing negative, covid and repeat covid negative( repeat as family has tested positive in last week) diarrhea stool pcr negative, c diff negative (2) Acute kidney injury: Plan: Patient did have acute kidney injury due to nausea and vomiting, with decreased oral intake. Creatinine was 1.55 with base 1.04 still with ron but improving, additional fluids ordered, has non anion gap acidosis likley from diarrhea (3) Generalized weakness: Plan: Pt has a history of breast cancer, did have treatment and XRT Weakness or metabolic encephalopathy from pneumonia present on admission Plan hypokalemia, repletion continues and magnesium and Phos results will be replete on 07/05 Admission and Anticipated Discharge Date Admission Date: July 02, 2024 Subjective diarrhea has lessened, almost resolved eating somewhat better Concerned with cyclic afternoon fevers tickborne studies tested and negative overall states feels a little better may be just a prolonged recovery from a viral illness versus response to antibiotic change Physical Exam Physical Exam: awake and alert, mild distress abd is soft and non tender, no rebound, no ruq pain if any is epigastric Results & Data Results & Data Vital Signs (Past 12 Hours) Vital Signs Temp Pulse Pulse Resp BP Pulse Ox O2 Del Method 07/05/24 14:07 93 H 07/05/24 12:04 98.8 F 92 H 20 137/56 L 93 Room Air 07/05/24 08:10 100.4 F H 85 20 129/56 L 90 Room Air 07/05/24 07:23 84 Laboratory Results Reviewed CBC reviewed chemistry Replete low phosphorus and magnesium 07/05 PG Care Time/CCT Total # of Minutes Spent Total Time Spent with Patient: Total time spent is greater than 50% in coordination of care (as documented) at patient's floor/unit and/or counseling patient: Coding Level of Care Code 40410 SUB INP/OBS CARE 50MIN Diagnoses Sepsis A41.9 Acute kidney injury N17.9 Generalized weakness R53.1
[2024-07-05] MEDS: AZITHROMYCIN 250 MG TAB PO SCH (15:58)
--- NOTE | 2024-07-06 15:08 | Electrocardiogram Report ---
Test Reason : Blood Pressure : */* mmHG Vent. Rate : 69 BPM Atrial Rate : 69 BPM P-R Int : 190 ms QRS Dur : 146 ms QT Int : 464 ms P-R-T Axes : 62 2 140 degrees QTcB Int : 497 ms Normal sinus rhythm Left bundle branch block Abnormal ECG When compared with ECG of 03-Jul-2024 04:06, No significant change was found Confirmed by Santiago Gan ([id number] on 07/06/2024 3:07:55 PM Referred By: REFERRED SELF Confirmed By: Santiago Gan
--- NOTE | 2024-07-06 22:27 | Hospitalist Progress Note ---
Date of Service July 06, 2024 Assessment & Plan (1) Sepsis: Plan: Sepsis due to pneumonia involving left lung-concern for gram negative pneumonia or aspiration pneumonia Patient initially presented with symptoms of nausea and vomiting, prompting a CT scan of abdomen pelvis, which revealed a left lower lobe infiltrate, and was otherwise normal. Zosyn was changed to cefepime and azithromycin due to afternoon fevers so far fevers have resolved may need to go home on atypical coverage can consider levofloxacin DuoNebs every 2 hours as needed, acetaminophen 1 g IV every 8 hours as needed, and pantoprazole 40 mg IV daily MRSA swab ordered-negative sputum not collected [employer] testing negative, covid and repeat covid negative( repeat as family has tested positive in last week) diarrhea stool pcr negative, c diff negative Appears to be a pneumonia. WIll continnue abx treatment. (2) Acute kidney injury: Plan: Patient did have acute kidney injury due to nausea and vomiting, with decreased oral intake. Creatinine was 1.55 with base 1.04 still with ron but improving, additional fluids ordered, has non anion gap acidosis likley from diarrhea (3) Generalized weakness: Plan: Pt has a history of breast cancer, did have treatment and XRT Weakness or metabolic encephalopathy from pneumonia present on admission Plan hypokalemia, repletion continues and magnesium and Phos results will be replete on 07/05 Admission and Anticipated Discharge Date Admission Date: July 02, 2024 Subjective Patient worried if she had another explanation to her pneumonia. She asked if she could have been poisoned. Review of Systems Review of Systems: All systems reviewed & are unremarkable except as noted in HPI & below Physical Exam Physical Exam: awake and alert, mild distress abd is soft and non tender, no rebound, no ruq pain if any is epigastric Results & Data Results & Data Vital Signs (Past 12 Hours) Vital Signs Temp Pulse Pulse Resp BP Pulse Ox O2 Del Method 07/06/24 19:44 37.7 C H 84 18 120/65 94 Room Air 07/06/24 15:52 36.8 C 88 18 146/68 H 91 Room Air 07/06/24 14:26 89 07/06/24 12:18 37.1 C 90 17 152/62 H 92 Room Air PG Care Time/CCT Total # of Minutes Spent Total Time Spent with Patient: Total time spent is greater than 50% in coordination of care (as documented) at patient's floor/unit and/or counseling patient: Coding Level of Care Code 36152 SUB INP/OBS CARE 2MIN Diagnoses Sepsis A41.9 Acute kidney injury N17.9 Generalized weakness R53.1
[2024-07-07 06:24] LABS: BUN Creatinine Ratio 12.2 (10-20); C Reactive Protein 15.95 mg/dl (0-0.5); Calcium 8.9 mg/dl (8.6-10.3); Creatinine Clr Calc Pharmacy 46.4 ml/min; Potassium 3.2 mmol/L (3.5-5.1)
[2024-07-07 06:29] LABS: Basophils # (auto) 0.01 K/uL (0.00-0.20); Basophils % (auto) 0.3 %; Eosinophils % (auto) 3.1 %; Hemoglobin 8.7 g/dl (12.0-16.0); Immature Granulocytes # (auto) 0.04 K/uL (0.01-0.20); Immature Granulocytes % (auto) 1.2 %; Lymphocytes % (auto) 15.4 %; Mean Corpuscular Hemoglobin 30.7 pg (25.0-34.0); Mean Corpuscular Hgb Conc 34.8 g/dL (32.0-36.0); Mean Corpuscular Volume 88.3 fL (80.0-100.0); Mean Platelet Volume 9.7 fL (9.4-12.4); Monocytes # (auto) 0.23 K/uL (0.11-0.59); Monocytes % (auto) 7.1 %; Neutrophils # (auto) 2.37 K/uL (1.40-6.50); Neutrophils % (auto) 72.9 %; Platelet Count 266 K/uL (130-400); RDW Coefficient of Variation 14.3 % (11.5-14.5); RDW Standard Deviation 46.2 fL (36.4-46.3); Red Blood Count 2.83 M/uL (4.20-5.40); White Blood Count 3.25 K/ul (4.8-10.8)
[2024-07-07 10:29] LABS: Magnesium 1.5 mg/dl (1.7-2.4); Phosphorus 2.6 mg/dl (2.5-4.9)
[2024-07-07] MEDS: MAGNESIUM OXIDE 400 MG TAB PO SCH (21:11)
--- NOTE | 2024-07-07 22:24 | Hospitalist Progress Note ---
Date of Service July 07, 2024 Assessment & Plan (1) Sepsis: Plan: Sepsis due to pneumonia involving left lung-concern for gram negative pneumonia or aspiration pneumonia Patient initially presented with symptoms of nausea and vomiting, prompting a CT scan of abdomen pelvis, which revealed a left lower lobe infiltrate, and was otherwise normal. Zosyn was changed to cefepime and azithromycin due to afternoon fevers so far fevers have resolved may need to go home on atypical coverage can consider levofloxacin DuoNebs every 2 hours as needed, acetaminophen 1 g IV every 8 hours as needed, and pantoprazole 40 mg IV daily MRSA swab ordered-negative sputum not collected [employer] testing negative, covid and repeat covid negative( repeat as family has tested positive in last week) diarrhea stool pcr negative, c diff negative Appears to be a pneumonia. WIll continue abx treatment. repleted electrolytes anticipate discharge on 07/08 (2) Acute kidney injury: Plan: Patient did have acute kidney injury due to nausea and vomiting, with decreased oral intake. Creatinine was 1.55 with base 1.04 still with ron but improving, additional fluids ordered, has non anion gap acidosis likley from diarrhea (3) Generalized weakness: Plan: Pt has a history of breast cancer, did have treatment and XRT Weakness or metabolic encephalopathy from pneumonia present on admission Plan hypokalemia, repletion continues and magnesium and Phos results will be replete on 07/05 Admission and Anticipated Discharge Date Admission Date: July 02, 2024 Subjective Patient repots having nausea, and feeling weak this AM. Improved jagdish course of the day. Physical Exam Physical Exam: awake and alert, mild distress abd is soft and non tender, no rebound, no ruq pain if any is epigastric Results & Data Results & Data Vital Signs (Past 12 Hours) Vital Signs Temp Pulse Resp BP Pulse Ox O2 Del Method 07/07/24 19:36 36.8 C 85 18 148/69 H 93 Room Air 07/07/24 19:30 Room Air 07/07/24 16:00 36.7 C 87 18 125/63 97 Room Air 07/07/24 15:16 Room Air 07/07/24 11:22 36.6 C 70 20 118/63 96 Room Air PG Care Time/CCT Total # of Minutes Spent Total Time Spent with Patient: Total time spent is greater than 50% in coordination of care (as documented) at patient's floor/unit and/or counseling patient: Coding Level of Care Code 53076 SUB INP/OBS CARE 235MIN Diagnoses Sepsis A41.9 Acute kidney injury N17.9 Generalized weakness R53.1
[2024-07-08 05:39] LABS: Hematocrit (blood only) 25.3 % (37.0-47.0); Hemoglobin 8.6 g/dl (12.0-16.0); Mean Corpuscular Hemoglobin 30.4 pg (25.0-34.0); Mean Corpuscular Volume 89.4 fL (80.0-100.0); Mean Platelet Volume 9.4 fL (9.4-12.4); Platelet Count 317 K/uL (130-400); RDW Coefficient of Variation 14.5 % (11.5-14.5); Red Blood Count 2.83 M/uL (4.20-5.40); White Blood Count 3.34 K/ul (4.8-10.8)
[2024-07-08 05:57] LABS: BUN Creatinine Ratio 15.5 (10-20); C Reactive Protein 9.36 mg/dl (0-0.5); Calcium 8.8 mg/dl (8.6-10.3); Creatinine Clr Calc Pharmacy 46.6 ml/min; Magnesium 1.5 mg/dl (1.7-2.4); Potassium 3.2 mmol/L (3.5-5.1)
[2024-07-08] MEDS: POTASSIUM CHLORIDE CRTAB 20 MEQ TABCR PO STA (10:00)
[2024-07-08] MEDS: MAGNESIUM SULFATE / D5W 1 GM/100 ML BAG IV SCH (10:42)
[2024-07-08 11:56] VITALS: BP 125/66; PULSE 80; RESP 20; TEMP 98.1; O2SAT 97
== END 2024-07-08 15:35 | disposition home or self-care (01) | DRG 871 ==
LOC: ED 18:36 → SUATTDRO 22:39 → 2S 22:39